=== PATIENT | female | born 1965 | race African-American/Black ===

== ENCOUNTER 2017-06-25 13:10 | Outpatient (CLI) | payer MEDICARE | END 2017-06-25 13:11 | disposition home or self-care (01) | LOC: BICMAMMO 13:10 | PROVIDERS: ATTEND Internal Medicine | DX: Z12.31 Encounter for screening mammogram for malignant neoplasm of breast (principal) | CPT/HCPCS: 77063; 77067 ==

== ENCOUNTER 2017-10-02 09:28 | Emergency (ER) | payer MEDICARE ==
[2017-10-02] MEDS ORDERED: Morphine 10 MG/ML VIAL ONE (10:04)
--- NOTE | 2017-10-02 10:32 | RAD ---
2 VIEWS RIGHT HUMERUS: Date: 10/02/17 PROVIDED CLINICAL HISTORY: Pain status post injury. FINDINGS: There is a comminuted, displaced fracture of the right proximal humerus, primarily involving the maksim ral neck. No additional fracture is evident. IMPRESSION: Comminuted, displaced right proximal humeral fracture. POS: [facility]
== END 2017-10-02 10:41 | disposition home or self-care (01) ==
LOC: ERS 09:28
DX: S42.214A Unspecified nondisplaced fracture of surgical neck of right humerus, initial encounter for closed fracture (principal); E11.9 Type 2 diabetes mellitus without complications; I10 Essential (primary) hypertension; F41.9 Anxiety disorder, unspecified; F32.9 Major depressive disorder, single episode, unspecified; Z87.891 Personal history of nicotine dependence; Z79.4 Long term (current) use of insulin; Z79.899 Other long term (current) drug therapy; W18.09XA Striking against other object with subsequent fall, initial encounter; Y93.02 Activity, running
CPT/HCPCS: 96372; J2270

== ENCOUNTER 2017-10-23 13:46 | Outpatient (CLI) | payer MEDICARE | END 2017-10-23 13:47 | disposition home or self-care (01) | LOC: BICMAMMO 13:46 | PROVIDERS: ATTEND Internal Medicine Rheumatology | DX: M80.00XS Age-related osteoporosis with current pathological fracture, unspecified site, sequela (principal); M85.88 Other specified disorders of bone density and structure, other site | CPT/HCPCS: 77080 ==

== ENCOUNTER 2017-12-03 12:07 | Emergency (ER) | payer MEDICARE ==
--- NOTE | 2017-12-03 13:23 | RAD ---
RIGHT ANKLE THREE VIEWS: HISTORY: Right ankle pain after fall. COMPARISON: None. FINDINGS: Three views of the right ankle show a fracture of the distal fibula. Diffuse surrounding soft tissue swelling is seen. No other fractures are seen. No dislocation is present. IMPRESSION: Distal fibula fracture. POS: [facility]
--- NOTE | 2017-12-03 13:24 | RAD ---
RIGHT KNEE FOUR VIEWS: HISTORY: Fall with right knee pain. COMPARISON: None. FINDINGS: Four views of the right knee show no evidence of acute fracture or dislocation. Moderate diffuse sof t tissue swelling is seen. No knee effusion is present. IMPRESSION: No evidence of acute osseous abnormality. POS: [facility]
== END 2017-12-03 15:05 | disposition home or self-care (01) ==
LOC: ERS 12:07
DX: S82.831A Other fracture of upper and lower end of right fibula, initial encounter for closed fracture (principal); I10 Essential (primary) hypertension; F41.9 Anxiety disorder, unspecified; F32.9 Major depressive disorder, single episode, unspecified; Z79.899 Other long term (current) drug therapy; Z79.4 Long term (current) use of insulin; W17.89XA Other fall from one level to another, initial encounter
CPT/HCPCS: 29515

== ENCOUNTER 2018-02-17 10:24 | Outpatient (CLI) | payer MEDICARE ==
[2018-02-17] MEDS ORDERED: ISOVUE-370 76%-LOCM 1 ML ONE (11:00)
--- NOTE | 2018-02-17 13:58 | CT ---
CT ABDOMEN WITH AND WITHOUT IV CONTRAST: HISTORY: Liver mass. CORRELATION: MRI from 12/31/2016. FINDINGS: There is a 7 mm nodule at the right lung base. An 18 mm hyperenhancing lesion is seen at the anterio r aspect of the lateral segment of the left lobe of the liver, best seen on the arterial phase images , similar to that seen on 12/31/2016. The spleen, pancreas, adrenal glands, and right kidney are nor mal. There is a 6 mm nonobstructing left renal calculus. No hydroureteronephrosis is seen on either side. A subcentimeter low density lesion in the left renal cortex likely represents a cyst. Postop changes in the stomach and of a cholecystectomy are again seen. No free air, free fluid, or l ymphadenopathy is identified. The aorta is of normal caliber. There are mild degenerative changes i n the spine. IMPRESSION: 1. Stable hyperenhancing liver lesion for the past two years, indicating a benign process. 2. Nonobstructing, 6 mm left renal calculus. 3. A 7 mm right basilar lung nodule. A dedicated CT scan of the chest is recommended. POS: [facility]
== END 2018-02-17 10:25 | disposition home or self-care (01) ==
LOC: BICCT 10:24
PROVIDERS: ATTEND Internal Medicine Gastroenterology
DX: K76.9 Liver disease, unspecified (principal); N20.0 Calculus of kidney; R91.1 Solitary pulmonary nodule
CPT/HCPCS: 74170

== ENCOUNTER 2018-04-25 10:10 | Outpatient (CLI) | payer MEDICARE ==
[~2018-04-25 10:10] MED LIST: ISOVUE-370 76%-LOCM 1 ML ONE
--- NOTE | 2018-04-25 11:33 | CT ---
CT OF CHEST PERFORMED WITH INTRAVENOUS CONTRAST ENHANCEMENT: History: Pulmonary nodule noted on recent CT examination of 02-17-18. CT of chest was recommended for assessment for evaluation for additional nodules. Comparison: 02-17-18 CT abdomen/pelvis. FINDINGS: The lungs are clear of any infiltrative process. There is an approximately 7 mm nodule seen in the ri ght lower lobe on the prior examination is now only a very vague parenchymal density. The more soft t issue component is absent on this examination and probably represents some minimal atelectatic change . There are no additional pulmonary nodules seen. No pleural effusions. No significant mediastinal, hilar, or axillary adenopathy. The enhancing focus in the left lobe of the liver is again noted as described on recent CT study> The gallbladder has been removed. IMPRESSION: The small 7 mm nodular density seen in the right lower lobe on the CT study of 02-17-18 is now only a very vague ground glass parenchymal density without any definite solid nodular component. It probabl y represented a small focus of atelectasis that has resolved. POS: [facility]
--- NOTE | 2018-04-25 13:24 | MRI ---
MRI OF LUMBAR SPINE: DATE: 04/25/2018. COMPARISON: None. HISTORY: Chronic lumbar radiculopathy. TECHNIQUE: Multiplanar, multisequence MR imaging of the lumbar spine is obtained without contrast. FINDINGS: The sagittal STIR imaging demonstrates no focal area of osseous marrow edema. Metallic artifact noted anterior to L5 and S1 vertebral bodies. There is no anterolisthesis or retrolisthesis seen within the lumbar spine. On the basis of 5 lumbar-type vertebral bodies, conus medullaris terminates at T12-L1. T12-L1: Intervertebral disk height and signal intensity is within normal limits. There is no signif icant central canal or neural foraminal stenosis. There is mild bilateral facet hypertrophy. L1-2: Mild bilateral facet hypertrophy. Disk space narrowing and mild disk desiccation with no sign ificant central canal or neural foraminal stenosis. L2-3: Mild bilateral facet hypertrophy. Mild disk bulge and small left foraminal disk protrusion. No significant central canal or neural foraminal stenosis. L3-4: Mild bilateral facet hypertrophy. Mild disk bulge. No significant central canal or neural fo raminal stenosis. L4-5: There is mild bilateral facet hypertrophy. Intervertebral disk height and signal intensity ap pears grossly unremarkable. No significant central canal or neural foraminal stenosis. L5-S1: Mild bilateral facet hypertrophy with no significant central canal or neural foraminal stenos is. The imaged retroperitoneal structures appear grossly unremarkable. IMPRESSION: Multilevel facet hypertrophy noted. No significant central canal or neural foraminal stenosis. POS: [facility]
== END 2018-04-25 10:11 | disposition home or self-care (01) ==
LOC: BICCT 10:10
PROVIDERS: ATTEND Internal Medicine
DX: M54.16 Radiculopathy, lumbar region (principal); R91.1 Solitary pulmonary nodule; M48.8X7 Other specified spondylopathies, lumbosacral region
CPT/HCPCS: 71260; 72148

== ENCOUNTER 2018-06-03 14:17 | Outpatient (CLI) | payer MEDICARE ==
--- NOTE | 2018-06-03 15:16 | RAD ---
PA AND LATERAL CHEST: History: Cough. FINDINGS: The heart size is borderline. The lungs are expanded without focal areas of consolidation, pneumothor aces or pleural effusions. There is an old fracture of the right humeral neck. IMPRESSION: No radiographic evidence of acute cardiopulmonary process. POS: [facility]
== END 2018-06-03 14:18 | disposition home or self-care (01) ==
LOC: BICRAD 14:17
PROVIDERS: ATTEND Internal Medicine
DX: R05 Cough (principal)
CPT/HCPCS: 71046

== ENCOUNTER 2018-11-05 15:04 | Outpatient (CLI) | payer MEDICARE ==
--- NOTE | 2018-11-05 16:05 | MMO ---
Bilateral MAMMO Bilat Screen [facility]. CLINICAL HISTORY: Patient is 53 years old and is seen for screening. The patient has no family history of breast cancer. The patient has no personal history of cancer. The patient has a history of bilateral Breast reduction in - benign. VIEWS: The views performed were: bilateral craniocaudal with tomosynthesis and bilateral mediolateral oblique with tomosynthesis. FILMS COMPARED: The present examination has been compared to prior imaging studies performed at [facility] on 07/13/2011, 08/13/2012, 11/11/2015 and 06/25/2017. MAMMOGRAM FINDINGS: There are scattered fibroglandular densities. There are no suspicious masses, suspicious calcifications, or new areas of architectural distortion. IMPRESSION: THERE IS NO MAMMOGRAPHIC EVIDENCE OF MALIGNANCY. A ROUTINE FOLLOW-UP MAMMOGRAM IN 1 YEAR IS RECOMMENDED. THE RESULTS OF THIS EXAM WERE SENT TO THE PATIENT. ACR BI-RADS Category 1 - Negative MAMMOGRAPHY NOTE: 1. A negative mammogram report should not delay a biopsy if a dominant of clinically suspicious mass is present. 2. Approximately 10% to 15% of breast cancers are not detected by mammography. 3. Adenosis and dense breasts may obscure an underlying neoplasm. Reported by: Noel MARRUFO Electonically Signed: [id number]
== END 2018-11-05 15:05 | disposition home or self-care (01) ==
LOC: BICMAMMO 15:04
PROVIDERS: ATTEND Internal Medicine
DX: Z12.31 Encounter for screening mammogram for malignant neoplasm of breast (principal)
CPT/HCPCS: 77063; 77067

== ENCOUNTER 2018-12-30 20:57 | Observation (INO) | payer MEDICARE ==
[2018-12-30 21:55] LABS: Bilirubin Negative (Negative); Blood, Urine Negative (Negative); Clarity Clear (Clear); Glucose, Urine (Dipstick) Greater than 1000 mg/dL (Negative); Leukocyte 25 Leu/uL (Negative); Nitrite Negative (Negative); Protein, Urine (Dipstick) 70 mg/dL (Neg-Trace); WBC/HPF 0-3 HPF (0-3)
[2018-12-30 22:03] LABS: Bacteria/HPF 1+ HPF (None Seen)
[2018-12-30] MEDS ORDERED: Ondansetron PF 4 MG/2 ML Vial ONE (22:14)
[2018-12-30 22:24] LABS: #Basophils 0.1 thou/uL (0.0-0.2); #Neutrophils 10.3 thou/uL (1.40-6.50); %Basophils 0.6 % (0.0-1.0); %Eosinophils 0.1 % (0.0-10.0); %Monocytes 7.2 % (0.0-10.0); %Neutrophils 77.1 % (42.0-75.0); Mean Corpuscular HGB CONC 32.1 g/dL (32.0-36.0); Mean Corpuscular Volume 90.2 fL (78.0-98.0); Mean Platelet Volume 7.3 fL (7.4-10.4); Platelet Count 275 thou/uL (130-400); RBC Distribution Width 13.2 % (11.5-14.5); White Blood Cell (WBC) Count 13.3 thou/uL (4.8-10.8)
--- NOTE | 2018-12-30 22:37 | CT ---
CT BRAIN NONCONTRAST: DATE: 12/30/2018 HISTORY: 53-year-old female with altered mental status: Disorientation, anorexia, generalized weakness, confus ion, and somnolence. FINDINGS: There is no evidence of acute intra-axial or extra-axial hemorrhage. There is no midline shift or any other mass effect. There is no extra-axial fluid collection. There is no evidence of obstructive hydrocephalus. Calvarium is intact. IMPRESSION: No acute intracranial findings.
[2018-12-30 22:43] LABS: ALT (SGPT) 17 U/L (8-55); AST (SGOT) 20 U/L (5-34); Albumin 3.2 g/dL (3.5-5.0); Alkaline Phosphatase 134 U/L (40-110); Anion Gap 13 mmol/L (10-20); BUN (Urea Nitrogen) 19 mg/dL (9.8-20.1); Bilirubin, Total 0.5 mg/dL (0.2-1.2); Calc. Creatinine Clearance 0 mL/min (70-130); Calcium 8.9 mg/dL (7.8-10.44); Carbon Dioxide 24 mmol/L (22-29); Chloride 102 mmol/L (98-107); Estimated GFR-MDRD 60; Globulin 3.6 g/dL (2.4-3.5); Glucose 116 mg/dL (70-105); Potassium 3.8 mmol/L (3.5-5.1); Protein, Total 6.8 g/dL (6.0-8.3); Sodium 135 mmol/L (136-145)
[2018-12-30 23:06] LABS: CKMB 2.4 ng/mL (0-6.6)
[2018-12-30] MEDS ORDERED: Aspirin 325 MG TAB ONE (23:46)
[2018-12-31 01:49] LABS: Troponin I 0.039 ng/mL (< 0.028)
[2018-12-31 01:51] VITALS: BMI 37.0
[2018-12-31 07:24] LABS: Troponin I 0.067 ng/mL (< 0.028)
[2018-12-31] MEDS ORDERED: Dextrose 50% Abboject 50 ML SYRINGE SLOW IVP PRN (09:34)
[2018-12-31] MEDS ORDERED: Ondansetron PF 4 MG/2 ML Vial IVP PRN (09:34)
[2018-12-31] MEDS ORDERED: Acetaminophen 325 MG TAB PO PRN (09:34)
[2018-12-31] MEDS ORDERED: HumaLOG 300 UNITS/3 ML VIAL SC PRN ×2 (09:34)
[2018-12-31] MEDS ORDERED: Dextrose 5% in Water 1,000 ML IV PRN (09:34)
[2018-12-31] MEDS ORDERED: Ondansetron ODT 4 MG TAB PO PRN (09:34)
[2018-12-31] MEDS ORDERED: Dicyclomine 20 MG TAB PO PRN (09:36)
[2018-12-31] MEDS ORDERED: HYDROcodone/Acetaminophen 10/325 mg Tablet PO PRN ×2 (09:36→09:48)
[2018-12-31 10:19] LABS: #Basophils 0.1 thou/uL (0.0-0.2); #Lymphocytes 2.3 thou/uL (1.20-3.40); #Neutrophils 6.6 thou/uL (1.40-6.50); %Basophils 0.7 % (0.0-1.0); %Eosinophils 0.1 % (0.0-10.0); %Lymphocytes 23.3 % (21.0-51.0); %Monocytes 9.9 % (0.0-10.0); %Neutrophils 65.9 % (42.0-75.0); Hemoglobin 12.2 g/dL (12.0-16.0); Mean Corpuscular HGB CONC 32.3 g/dL (32.0-36.0); Mean Corpuscular Hemoglobin 29.1 pg (27.0-31.0); Mean Corpuscular Volume 90.1 fL (78.0-98.0); Mean Platelet Volume 7.3 fL (7.4-10.4); Platelet Count 238 thou/uL (130-400); RBC Distribution Width 13.1 % (11.5-14.5); Red Blood Cell (RBC) Count 4.19 mill/uL (4.20-5.40)
[2018-12-31 10:33] LABS: Anion Gap 12 mmol/L (10-20); BUN (Urea Nitrogen) 17 mg/dL (9.8-20.1); Calc. Creatinine Clearance 110 mL/min (70-130); Calcium 8.3 mg/dL (7.8-10.44); Carbon Dioxide 23 mmol/L (22-29); Chloride 108 mmol/L (98-107); Estimated GFR-MDRD 79; Glucose 79 mg/dL (70-105); Magnesium 1.7 mg/dL (1.6-2.6); Potassium 3.7 mmol/L (3.5-5.1); Sodium 139 mmol/L (136-145)
[2018-12-31 10:34] LABS: CRP (Inflammatory) 4.48 mg/dL (= or < 0.5); Complement-C4 27.7 mg/dL (15-57)
--- NOTE | 2018-12-31 12:24 | MRI ---
MRI BRAIN WITHOUT CONTRAST: Date: 12/31/18 INDICATION: Altered mental status. Weakness and confusion. FINDINGS: Ventricles have normal size and position. No evidence of restricted diffusion. No mass or edema. No s ignificant white matter abnormality. No evidence of hemorrhage. Intracranial internal carotid arterie s and cerebral arteries show expected flow-voids. Dural venous sinuses are patent. Paranasal sinuses and mastoids appear clear. IMPRESSION: Unremarkable MRI brain. POS: [facility]
[2018-12-31 12:34] LABS: Free T4 (Free Thyroxine) 0.89 ng/dL (0.70-1.48); Thyroid Stimulating Hormone 0.5156 uIU/mL (0.35-4.94)
[2018-12-31 13:11] LABS: Amphetamine Not Detected (NotDetected); Barbiturates Screen Not Detected (NotDetected); Benzodiazepine Screen Not Detected (NotDetected); Cocaine Metabolite Screen Not Detected (NotDetected); Medtox Control Line Valid? VALID (VALID); Medtox Reader # READER 4; Methadone Not Detected (NotDetected); Methamphetamine Not Detected (NotDetected); Opiate Screen Detected (NotDetected); Oxycodone Screen Not Detected (NotDetected); Phencyclidine (PCP) Not Detected (NotDetected); THC/Cannabinoid Screen Not Detected (NotDetected); Tricyclic Screen Detected (NotDetected)
[2018-12-31 13:13] LABS: ANA Symphony (Qualitative) Negative (Negative); ANA Symphony (Quantitative) 0.2 Ratio (< 0.7 Negative); EliA Thy New Method **** NEW METHOD ****; EliA Vaculitis New Method **** NEW METHOD ****; Mitochondrial Ab 0.7 U/mL (<4 Negative); dsDNA IgG Antibody 1.2 IU/mL (<10 Negative)
[2018-12-31] MEDS ORDERED: Gabapentin 300 MG CAP PO SCH ×2 (15:00→21:00)
--- NOTE | 2018-12-31 16:49 | HP ---
PRIMARY CARE PHYSICIAN: Dr. Jackie Hidalgo. CHIEF COMPLAINT: Amnesia and general malaise. HISTORY OF PRESENT ILLNESS: Ms. Duenas is a 53-year-old female with past medical history of hypertension, diabetes mellitus type 2, adrenal insufficiency, fibromyalgia, lupus, rheumatoid arthritis, who had presented to the ED late last night after she had experienced acute amnesia over the last 2 days. She states that she has had a brain fog and acute loss of memory over the last 2 days along with some general malaise and not feeling well. She also reported headache, started on Saturday, she states that she has a history of migraines. She had denied any fever, chills, any chest pain, palpitations, shortness of breath, abdominal pain, nausea, or vomiting. She states that she had felt slightly nauseous last night, which has soon resolved. During her workup in the ED, it showed an acute kidney injury with a creatinine slightly elevated at 1.14 with an estimated GFR of 60, glucose 116, and troponin indeterminate at 0.061 with a BNP of 116.5. However, she had no symptoms of chest pain or other cardiac symptoms at that time. Her CT of the head was unremarkable. Her blood pressure and other vital signs remained stable and she had no changes on her EKG. REVIEW OF SYSTEMS: All other systems reviewed and found to be negative unless mentioned in the HPI. PAST MEDICAL HISTORY: Hypertension, diabetes mellitus, fibromyalgia, adrenal insufficiency, lupus, rheumatoid arthritis. PAST SURGICAL HISTORY: Hysterectomy, bilateral breast reduction, ulnar nerve surgery on the left, cholecystectomy. PSYCHIATRIC HISTORY: Anxiety. SOCIAL HISTORY: The patient is a former smoker and quit in 2010. She had denied any alcohol or illicit drug use. KNOWN ALLERGIES: Lactose, latex, meperidine, penicillins, and sulfa. CURRENT HOME MEDICATIONS: 1. Levothyroxine 200 mcg p.o. daily. 2. Amitriptyline 50 mg p.o. b.i.d. 3. Bupropion 100 mg p.o. daily. 4. Clopidogrel 75 mg oral daily. 5. p.o. b.i.d. 6. Duloxetine 120 mg p.o. daily. 7. Gabapentin 600 mg in the morning and 300 mg at 3 p.m. and at bedtime. 8. Hydrochlorothiazide 25 mg p.o. daily. 9. Hydrocodone/acetaminophen 10/325 mg oral q.i.d. p.r.n. pain. 10. Leflunomide 20 mg p.o. daily. 11. Prednisone 5 mg p.o. daily. 12. Simvastatin 20 mg p.o. q.p.m. 13. Telmisartan 80 mg p.o. daily. 14. Folic acid 1 mg p.o. daily. 15. Colestipol 1 g p.o. b.i.d. 16. Novolin 70/30, 25 units subcu once daily. PHYSICAL EXAMINATION: VITAL SIGNS: Blood pressure 138/82, pulse 83, respirations 20, temperature 98.4, O2 saturation 93% on room air. GENERAL: The patient is awake, alert, and oriented x3. She is currently lying comfortably in bed and in no acute distress. HEENT: Atraumatic, normocephalic. Pupils are round and reactive to light. Extraocular muscles are intact. Moist mucous membranes noted. NECK: Soft and supple. Trachea midline. CARDIOVASCULAR: Positive S1 and S2, regular rate and rhythm. No murmur auscultated. RESPIRATORY: Clear to auscultation bilaterally. No wheezes, rales, or rhonchi. ABDOMEN: Soft, nontender, bowel sounds present. EXTREMITIES: Moves all extremities equal. Pedal and radial pulses 2+ bilaterally. No edema noted. NEUROLOGIC: Cranial nerves 2 through 12 are grossly intact. No focal deficits noted. Speech intact and normal. Gait not assessed. SKIN: Warm, dry, and intact. No rashes. No ulceration noted. PSYCHIATRIC: Good mood and affect. LABORATORY DATA: WBC 13.3, RBC 4.50, hemoglobin 13.0, hematocrit 40.5, platelets 275. Sodium 135, potassium 3.8, anion gap 13, BUN 19, creatinine 1.14, estimated GFR 60, glucose 116. CK-MB 2.4. Troponin 0.061, 0.039, 0.067. BNP 116.5. DIAGNOSTIC IMAGING: CT of brain without contrast showed no acute intracranial findings. ASSESSMENT AND PLAN: 1. Acute amnesia. We will obtain an MRI, urine drug screen, and consult Neurology Services at this time for further evaluation. 2. History of migraine. We will await her MRI results along with further recommendations from Neurology Services. This may also be causing above. 3. History of hypertension. Continue home regimen. 4. Diabetes mellitus, type 2. Continue home regimen and add insulin sliding scale with frequent Accu-Cheks. 5. History of lupus and rheumatoid arthritis. We will check to see if she is in acute lupus flare and restart her home regimen including oral prednisone daily. She states that she saw Dr. Hernandez as outpatient. 6. History of fibromyalgia. 7. Deep venous thrombosis and gastrointestinal prophylaxis. 8. Code status, full code. DISPOSITION: Pending further workup and clinical findings. Job ID: [id number]
[2018-12-31] MEDS: Amitriptyline HCl 25 MG TAB PO SCH (20:50)
[2018-12-31] MEDS ORDERED: Non-Formulary Item 1 EACH (Simvastatin [Simvastatin] 20 MG) PO SCH (21:00)
[2018-12-31] MEDS ORDERED: Non-Formulary Item 1 EACH (Amitriptyline Hcl [Amitriptyline Hcl] 50 MG) PO SCH (21:00)
[2018-12-31] MEDS ORDERED: Atorvastatin Calcium 10 MG TAB PO SCH (21:00)
[2019-01-01] MEDS ORDERED: Levothyroxine Sodium 100 MCG TAB PO SCH (06:00)
[2019-01-01 06:50] LABS: #Basophils 0.1 thou/uL (0.0-0.2); #Monocytes 0.9 thou/uL (0.11-0.59); #Neutrophils 5.4 thou/uL (1.40-6.50); %Basophils 0.8 % (0.0-1.0); %Eosinophils 0.3 % (0.0-10.0); %Lymphocytes 31.8 % (21.0-51.0); %Monocytes 9.9 % (0.0-10.0); %Neutrophils 57.1 % (42.0-75.0); Hemoglobin 12.3 g/dL (12.0-16.0); Mean Corpuscular HGB CONC 32.3 g/dL (32.0-36.0); Mean Corpuscular Hemoglobin 29.9 pg (27.0-31.0); Mean Corpuscular Volume 92.7 fL (78.0-98.0); Mean Platelet Volume 7.1 fL (7.4-10.4); Platelet Count 245 thou/uL (130-400); RBC Distribution Width 13.1 % (11.5-14.5); Red Blood Cell (RBC) Count 4.11 mill/uL (4.20-5.40); White Blood Cell (WBC) Count 9.5 thou/uL (4.8-10.8)
[2019-01-01] MEDS ORDERED: Clopidogrel Bisulfate 75 MG TAB PO SCH (09:00)
[2019-01-01] MEDS ORDERED: Enoxaparin Sodium 40 MG/0.4 ML SYRINGE SC SCH (09:00)
[2019-01-01] MEDS ORDERED: Hydrochlorothiazide 25 MG TAB PO SCH (09:00)
[2019-01-01] MEDS ORDERED: DULoxetine 60 MG CAP PO SCH (09:00)
[2019-01-01] MEDS ORDERED: predniSONE 5 MG TAB PO SCH (09:00)
[2019-01-01] MEDS ORDERED: Gabapentin 300 MG CAP PO SCH ×2 (09:00)
[2019-01-01] MEDS ORDERED: TELMISARTAN 80 MG PO SCH (09:00)
[2019-01-01] MEDS ORDERED: Leflunomide 10 mg Tablet PO SCH (09:00)
[2019-01-01] MEDS ORDERED: Losartan 25 MG TAB PO SCH (09:00)
[2019-01-01] MEDS ORDERED: Bupropion 100 MG SR TAB PO SCH (09:00)
[2019-01-01] MEDS: Amitriptyline HCl 25 MG TAB PO SCH (09:18)
[2019-01-01 09:48] LABS: Chloride 109 mmol/L (98-107); Potassium 3.9 mmol/L (3.5-5.1); Sodium 140 mmol/L (136-145)
[2019-01-01 09:49] LABS: Calcium 8.4 mg/dL (7.8-10.44); Glucose 89 mg/dL (70-105)
[2019-01-01 09:51] LABS: Anion Gap 11 mmol/L (10-20); Carbon Dioxide 24 mmol/L (22-29)
[2019-01-01 09:53] LABS: Calc. Creatinine Clearance 107 mL/min (70-130); Estimated GFR-MDRD 77
[2019-01-01 09:54] LABS: BUN (Urea Nitrogen) 18 mg/dL (9.8-20.1)
[2019-01-01 11:58] VITALS: BP 146/67; TEMP 98.2
--- NOTE | 2019-01-01 19:12 | DIS ---
DATE OF ADMISSION: 12/30/2018 DATE OF DISCHARGE: 01/01/2019 DISCHARGE DISPOSITION: Home. FOLLOWUP: 1. Follow up with primary care physician, Dr. Jackie Hidalgo, in 1 week. 2. Follow up with Neurology, Dr. Chicas, in 2 weeks. DISCHARGE MEDICATIONS: Imitrex as needed. All other home medications were left unchanged. The patient was seen and examined on the day of discharge. Denies any new complaints. No chest pain, shortness of breath, or palpitations. DIAGNOSTIC TESTS: 1. RAEGAN panel was negative. 2. Thyroid peroxidase IgG was 136 (normal is less than 25). 3. C3 and C4 were normal. 4. Troponin maximum was 0.067. 5. CRP was 4.48. 6. Creatinine 0.9. 7. WBC on admission 13.3, at discharge is 9.5. 8. CT scan of the brain on admission was negative for acute findings. 9. MRI of the brain was unremarkable. BRIEF HOSPITAL COURSE: The patient is a 53-year-old female with past history of hypertension, diabetes mellitus type 2, migraines, and systemic lupus erythematosus, presented to the hospital with generalized malaise along with transient amnesia. Please refer to the history and physical for further details. The patient was admitted to the hospital with a diagnosis of transient amnesia with altered mentation. She was monitored on the telemetry unit. Her electrolytes were essentially normal except for mild hyponatremia. The patient was evaluated by Neurology. According to Neurology, the patient probably had complex migraine. She was advised to restart Imitrex on an as-needed basis. She has been cleared by Neurology for discharge. The patient was also found to have elevated thyroid peroxidase IgG at 136. Her TSH was 0.51 with a free T4 of 0.89. She was advised to follow up on the above labs. FINAL DIAGNOSES: 1. Transient amnesia, suspected to be secondary to migraine. 2. Hypertension. 3. Diabetes mellitus, type 2. 4. Systemic lupus erythematosus. 5. Rheumatoid arthritis, on chronic steroids. 6. Fibromyalgia. 7. Adrenal insufficiency. 8. Hyponatremia. 9. Elevated troponin secondary to demand ischemia/type 2 myocardial infarction. 10. Leukocytosis, unlikely to be infectious. 11. Penicillin allergy. 12. Obesity with a body mass index of 36.8. Plan was discussed with the patient in detail. She stated understanding. Job ID: [id number]
--- NOTE | 2019-01-03 13:42 | EKG ---
Test Reason : ER Blood Pressure : / mmHG Vent. Rate : 083 BPM Atrial Rate : 083 BPM P-R Int : 180 ms QRS Dur : 094 ms QT Int : 418 ms P-R-T Axes : 011 -31 036 degrees QTc Int : 491 ms Normal sinus rhythm Left axis deviation Incomplete right bundle branch block Cannot rule out Anterior infarct , age undetermined Abnormal ECG Confirmed by STEVEN PARKER ([id number]), state editor LUZMARIA BUSTAMANTE ([id number]) on 01/03/2019 1:41:25 PM Referred By: Confirmed By:STEVEN PARKER
== END 2019-01-01 14:36 | disposition home or self-care (01) ==
LOC: ERS 20:57 → 2SW 23:16
PROVIDERS: ADMIT Internal Medicine; ATTEND Internal Medicine
DX: R41.3 Other amnesia (principal); R53.81 Other malaise; I10 Essential (primary) hypertension; E11.9 Type 2 diabetes mellitus without complications; M32.9 Systemic lupus erythematosus, unspecified; M06.9 Rheumatoid arthritis, unspecified; M79.7 Fibromyalgia; E27.40 Unspecified adrenocortical insufficiency; G43.909 Migraine, unspecified, not intractable, without status migrainosus; F41.9 Anxiety disorder, unspecified; E87.1 Hypo-osmolality and hyponatremia; E66.9 Obesity, unspecified; Z68.36 Body mass index [BMI] 36.0-36.9, adult; Z87.891 Personal history of nicotine dependence; Z88.0 Allergy status to penicillin; Z88.2 Allergy status to sulfonamides; Z88.5 Allergy status to narcotic agent; Z91.011 Allergy to milk products; Z91.040 Latex allergy status; Z79.02 Long term (current) use of antithrombotics/antiplatelets; Z79.4 Long term (current) use of insulin; Z79.52 Long term (current) use of systemic steroids; Z79.899 Other long term (current) drug therapy
CPT/HCPCS: 36415; 36416; 70450; 70551; 80048; 80053; 80306; 81003; 81015; 82553; 83516; 83735; 83880; 84439; 84443; 84484; 85025; 85652; 86038; 86140; 86160; 86225; 86376; 93005; 96361; 96374; G0378; J2405; J7512

== ENCOUNTER 2019-12-23 11:18 | Outpatient (CLI) | payer MEDICARE ==
--- NOTE | 2019-12-23 11:45 | RAD ---
EXAM: 4 views of the right knee HISTORY: Knee pain COMPARISON: None FINDINGS: No knee effusion is seen. There is no evidence of acute fracture or dislocation. No signifi cant degenerative changes are seen. Moderate diffuse soft tissue swelling is present. IMPRESSION: No evidence of acute osseous abnormality.
--- NOTE | 2019-12-23 11:45 | RAD ---
EXAM: 3 views of the right wrist HISTORY: Wrist pain after falling one week ago COMPARISON: None FINDINGS: 3 views of the right wrist shows no evidence of acute fracture or dislocation. No soft tiss ue swelling is seen. No degenerative changes are present. IMPRESSION: No evidence of acute osseous abnormality.
== END 2019-12-23 11:19 | disposition home or self-care (01) ==
LOC: BICRAD 11:18
PROVIDERS: ATTEND Internal Medicine
DX: M25.531 Pain in right wrist (principal); M25.561 Pain in right knee

== ENCOUNTER 2021-01-04 10:32 | Inpatient (IN) | payer MEDICARE ==
[2021-01-04] MEDS ORDERED: Azithromycin 500 MG VIAL ONE (11:42)
[2021-01-04 12:12] LABS: Hemoglobin 12.9 g/dL (12.0-16.0); Mean Corpuscular HGB CONC 30.8 g/dL (32.0-36.0); Mean Corpuscular Hemoglobin 28.6 pg (27.0-31.0); Mean Corpuscular Volume 92.9 fL (78.0-98.0); Mean Platelet Volume 7.1 fL (7.4-10.4); Platelet Count 401 thou/uL (130-400); RBC Distribution Width 14.9 % (11.5-14.5)
[2021-01-04 12:17] LABS: ALT (SGPT) 18 U/L (8-55); AST (SGOT) 18 U/L (5-34); Albumin 3.5 g/dL (3.5-5.0); Alkaline Phosphatase 151 U/L (40-110); Anion Gap 14 mmol/L (10-20); BUN (Urea Nitrogen) 14 mg/dL (9.8-20.1); Bilirubin, Total 0.6 mg/dL (0.2-1.2); Calc. Creatinine Clearance 0 mL/min (70-130); Carbon Dioxide 26 mmol/L (22-29); Chloride 105 mmol/L (98-107); Glucose 282 mg/dL (70-105); Potassium 3.6 mmol/L (3.5-5.1); Protein, Total 6.5 g/dL (6.0-8.3); Sodium 141 mmol/L (136-145)
[2021-01-04 12:41] LABS: Band 35 % (5-11); Lymphocytes 5 % (21-51); MDiff Complete? YES; Metamyelocyte 2 % (0-0); Monocytes 2 % (0-10); Neutrophil 56 % (42-75); RBC Morphology Normal
[2021-01-04] MEDS ORDERED: cefTRIAXone\\ROCEPHIN 2 GM VIAL ONE (13:03)
[2021-01-04] MEDS ORDERED: Dextrose 50% Abboject 50 ML SYRINGE SLOW IVP PRN (14:28)
[2021-01-04] MEDS ORDERED: HumaLOG 300 UNITS/3 ML VIAL SC PRN (14:28)
[2021-01-04] MEDS ORDERED: Dextrose 5% in Water 1,000 ML IV PRN (14:28)
[2021-01-04 16:04] LABS: Lactic Acid 7.4 mmol/L (0.5-2.2)
[2021-01-04] MEDS ORDERED: Sodium Chloride 0.9% 1,000 ML IV SCH ×2 (17:15→20:00)
[2021-01-04] MEDS ORDERED: Sodium Chloride 0.9% 500 ML IV SCH (17:15)
[2021-01-04 18:52] LABS: Lactic Acid 5.5 mmol/L (0.5-2.2)
[2021-01-04] MEDS: Vancomycin HCl 1.75 GM in Sodium Chloride 0.9% 500 ML IVPB SCH (18:53)
[2021-01-04 19:08] LABS: SARS-CoV-2 NAA Rapid Test Not Detected (NotDetected)
[2021-01-04] MEDS ORDERED: Benzonatate 100 MG CAP PO PRN (19:09)
[2021-01-04] MEDS: guaiFENesin ER 600 MG TAB PO SCH (20:49)
[2021-01-04] MEDS: hydrOXYzine 10 MG TAB PO PRN (20:49)
[2021-01-04] MEDS: Cefepime 2 GM in Sodium Chloride 0.9% 100 ML IVPB SCH (20:50)
[2021-01-04] MEDS: NPH, Human Insulin Isophane 300 UNIT/3 ML VIAL SC SCH (20:50)
[2021-01-04] MEDS ORDERED: Cefepime 2 GM in Sodium Chloride 0.9% 100 ML IVPB SCH (21:00)
[2021-01-04 23:56] LABS: Legionella Urinary Ag Negative (Negative); Strep pneumo Urine Ag NEGATIVE (NEGATIVE)
[2021-01-05 05:11] LABS: Band 3 % (5-11); Hemoglobin 11.6 g/dL (12.0-16.0); Lymphocytes 8 % (21-51); MDiff Complete? YES; Mean Corpuscular HGB CONC 31.4 g/dL (32.0-36.0); Mean Corpuscular Hemoglobin 29.1 pg (27.0-31.0); Mean Corpuscular Volume 92.7 fL (78.0-98.0); Mean Platelet Volume 7.1 fL (7.4-10.4); Monocytes 20 % (0-10); Neutrophil 69 % (42-75); Platelet Count 336 thou/uL (130-400); Platelet Morphology Comment Appears Adequate; RBC Morphology Normal; Red Blood Cell (RBC) Count 3.97 mill/uL (4.20-5.40); White Blood Cell (WBC) Count 28.5 thou/uL (4.8-10.8)
[2021-01-05 05:13] LABS: Lactic Acid 1.5 mmol/L (0.5-2.2)
[2021-01-05 05:18] LABS: Anion Gap 13 mmol/L (10-20); BUN (Urea Nitrogen) 19 mg/dL (9.8-20.1); Calc. Creatinine Clearance 120 mL/min (70-130); Calcium 8.4 mg/dL (7.8-10.44); Carbon Dioxide 28 mmol/L (22-29); Chloride 107 mmol/L (98-107); Glucose 229 mg/dL (70-105); Magnesium 2.2 mg/dL (1.6-2.6); Potassium 4.7 mmol/L (3.5-5.1); Sodium 143 mmol/L (136-145)
[2021-01-05] MEDS: Levothyroxine Sodium 100 MCG TAB PO SCH (05:39)
[2021-01-05] MEDS ORDERED: HYDROcodone/Acetaminophen 10/325 mg Tablet PO PRN (07:27)
[2021-01-05] MEDS: NPH, Human Insulin Isophane 300 UNIT/3 ML VIAL SC SCH ×2 (09:37→21:34)
[2021-01-05] MEDS: Cefepime 2 GM in Sodium Chloride 0.9% 100 ML IVPB SCH ×2 (09:39→20:53)
[2021-01-05] MEDS: Enoxaparin Sodium 40 MG/0.4 ML SYRINGE SC SCH (09:40)
[2021-01-05] MEDS: Amitriptyline HCl 25 MG TAB PO SCH ×2 (09:40→22:30)
[2021-01-05] MEDS: DULoxetine 60 MG CAP PO SCH (09:40)
[2021-01-05] MEDS: guaiFENesin ER 600 MG TAB PO SCH ×2 (09:41→22:31)
[2021-01-05] MEDS: Bupropion 100 MG SR TAB PO SCH (09:41)
[2021-01-05] MEDS: predniSONE 1 MG TAB PO SCH (09:45)
[2021-01-05] MEDS: Gabapentin 300 MG CAP PO SCH ×3 (11:22→22:30)
[2021-01-05] MEDS ORDERED: Iopamidol-370 76% 500 ML 1 ML ONE (11:28)
[2021-01-05] MEDS ORDERED: Sodium Chloride 0.9% 1,000 ML IV SCH ×2 (11:30→16:47)
[2021-01-05] MEDS ORDERED: Gabapentin 300 MG CAP PO SCH (12:00)
[2021-01-05] MEDS ORDERED: Azithromycin 500 MG in Sodium Chloride 0.9% 250 ML 250 ML IVPB SCH (13:00)
[2021-01-05] MEDS ORDERED: cefTRIAXone\\ROCEPHIN 1 GM in Sodium Chloride 0.9% 100 ML IVPB SCH (13:00)
[2021-01-05] MEDS: Azithromycin 500 MG in Sodium Chloride 0.9% 250 ML 250 ML IVPB SCH (13:16)
[2021-01-05] MEDS ORDERED: Cefepime 2 GM in Sodium Chloride 0.9% 100 ML IVPB SCH (16:00)
[2021-01-05] MEDS: Mometasone 200 MCG/Formoterol 5 MCG 120 PUFF INHALER INH SCH (18:43)
[2021-01-05] MEDS: Vancomycin HCl 1.75 GM in Sodium Chloride 0.9% 500 ML IVPB SCH (18:46)
[2021-01-05] MEDS ORDERED: Lorazepam 2 MG/ML VIAL SLOW IVP SCH (22:00)
[2021-01-05] MEDS ORDERED: Labetalol HCl 100 MG/20 ML VIAL SLOW IVP PRN (22:22)
[2021-01-06] MEDS ORDERED: Furosemide 40 MG/4 ML VIAL ONE (00:30)
[2021-01-06 00:39] LABS: Actual Bicarbonate (HCO3a) 22.6 mEq/L (22-28); Base Excess (BEa) -0.9 mEq/L (-2.0 to +3.0); CO2 Tension 33.6 mmHg (35.0-45.0); Calcium, Ionized (arterial) 1.15 mmol/L (1.12-1.30); Carboxyhemoglobin (COHb) 0.6 gm% (0.0-3.0); Hemoglobin (Hb) 11.6 g/dL (12.0-16.0); O2 Tension (PaO2), arterial 72.5 mmHg (80.0-100.0); Potassium - ABG Lab 3.63 mmol/L (3.70-5.30); pH, Arterial 7.45 (7.35-7.45)
[2021-01-06 00:45] LABS: Puncture Site RRA
[2021-01-06] MEDS ORDERED: methylPREDNISolone Sod Succ/PF 125 MG/2 ML VIAL IVP SCH (01:15)
[2021-01-06 01:44] LABS: Anion Gap 11 mmol/L (10-20); BUN (Urea Nitrogen) 22 mg/dL (9.8-20.1); Calc. Creatinine Clearance 138 mL/min (70-130); Calcium 8.4 mg/dL (7.8-10.44); Carbon Dioxide 25 mmol/L (22-29); Chloride 109 mmol/L (98-107); Glucose 110 mg/dL (70-105); Potassium 3.6 mmol/L (3.5-5.1); Sodium 141 mmol/L (136-145)
[2021-01-06] MEDS ORDERED: Furosemide 40 MG/4 ML VIAL SLOW IVP SCH (01:45)
[2021-01-06] MEDS: hydrOXYzine 10 MG TAB PO PRN (03:19)
[2021-01-06] MEDS: Cefepime 2 GM in Sodium Chloride 0.9% 100 ML IVPB SCH ×3 (03:19→20:56)
[2021-01-06] MEDS: Levothyroxine Sodium 100 MCG TAB PO SCH (03:58)
[2021-01-06 05:20] LABS: Hemoglobin 11.9 g/dL (12.0-16.0); Mean Corpuscular Hemoglobin 29.8 pg (27.0-31.0); Mean Corpuscular Volume 93.2 fL (78.0-98.0); Mean Platelet Volume 7.2 fL (7.4-10.4); Platelet Count 334 thou/uL (130-400); Red Blood Cell (RBC) Count 3.99 mill/uL (4.20-5.40); White Blood Cell (WBC) Count 26.8 thou/uL (4.8-10.8)
[2021-01-06 05:24] LABS: Anion Gap 15 mmol/L (10-20); BUN (Urea Nitrogen) 21 mg/dL (9.8-20.1); Calc. Creatinine Clearance 125 mL/min (70-130); Calcium 8.6 mg/dL (7.8-10.44); Carbon Dioxide 23 mmol/L (22-29); Chloride 108 mmol/L (98-107); Glucose 159 mg/dL (70-105); Potassium 4.2 mmol/L (3.5-5.1); Sodium 142 mmol/L (136-145)
[2021-01-06 05:45] LABS: Band 2 % (5-11); Lymphocytes 3 % (21-51); MDiff Complete? YES; Neutrophil 95 % (42-75)
[2021-01-06] MEDS: Enoxaparin Sodium 40 MG/0.4 ML SYRINGE SC SCH (09:24)
[2021-01-06] MEDS: Mometasone 200 MCG/Formoterol 5 MCG 120 PUFF INHALER INH SCH (09:24)
[2021-01-06] MEDS: guaiFENesin ER 600 MG TAB PO SCH ×2 (09:30→20:56)
[2021-01-06] MEDS: predniSONE 1 MG TAB PO SCH (09:30)
[2021-01-06] MEDS: NPH, Human Insulin Isophane 300 UNIT/3 ML VIAL SC SCH ×2 (09:30→21:06)
[2021-01-06] MEDS: Bupropion 100 MG SR TAB PO SCH (09:30)
[2021-01-06] MEDS: DULoxetine 60 MG CAP PO SCH (09:30)
[2021-01-06] MEDS: Gabapentin 300 MG CAP PO SCH ×3 (09:30→20:56)
[2021-01-06] MEDS: Amitriptyline HCl 25 MG TAB PO SCH ×2 (09:30→20:57)
[2021-01-06] MEDS: HumaLOG 300 UNITS/3 ML VIAL SC PRN ×2 (11:26→17:15)
[2021-01-06] MEDS: Azithromycin 500 MG in Sodium Chloride 0.9% 250 ML 250 ML IVPB SCH (13:51)
[2021-01-06] MEDS: Vancomycin HCl 1.75 GM in Sodium Chloride 0.9% 500 ML IVPB SCH (17:19)
[2021-01-06 18:17] LABS: Vancomycin, Trough 23.2 ug/mL
[2021-01-07] MEDS: Levothyroxine Sodium 100 MCG TAB PO SCH (04:55)
[2021-01-07] MEDS: Cefepime 2 GM in Sodium Chloride 0.9% 100 ML IVPB SCH ×3 (04:55→20:13)
[2021-01-07 05:30] LABS: Hemoglobin 10.6 g/dL (12.0-16.0); Mean Corpuscular HGB CONC 31.5 g/dL (32.0-36.0); Mean Corpuscular Hemoglobin 28.9 pg (27.0-31.0); Mean Corpuscular Volume 91.7 fL (78.0-98.0); Mean Platelet Volume 7.2 fL (7.4-10.4); Platelet Count 350 thou/uL (130-400); RBC Distribution Width 14.8 % (11.5-14.5); Red Blood Cell (RBC) Count 3.68 mill/uL (4.20-5.40); White Blood Cell (WBC) Count 25.2 thou/uL (4.8-10.8)
[2021-01-07 05:46] LABS: Anion Gap 14 mmol/L (10-20); BUN (Urea Nitrogen) 31 mg/dL (9.8-20.1); Calc. Creatinine Clearance 124 mL/min (70-130); Calcium 8.8 mg/dL (7.8-10.44); Carbon Dioxide 24 mmol/L (22-29); Chloride 108 mmol/L (98-107); Glucose 178 mg/dL (70-105); Potassium 3.9 mmol/L (3.5-5.1); Sodium 142 mmol/L (136-145)
[2021-01-07 06:58] LABS: Band 5 % (5-11); Lymphocytes 4 % (21-51); MDiff Complete? YES; Monocytes 6 % (0-10); Neutrophil 85 % (42-75)
[2021-01-07] MEDS: Mometasone 200 MCG/Formoterol 5 MCG 120 PUFF INHALER INH SCH ×4 (07:24→18:54)
[2021-01-07] MEDS: Bupropion 100 MG SR TAB PO SCH (08:46)
[2021-01-07] MEDS: Cholecalciferol 1,000 UNITS (25 MCG) TAB PO SCH (08:46)
[2021-01-07] MEDS: Amitriptyline HCl 25 MG TAB PO SCH ×2 (08:46→20:15)
[2021-01-07] MEDS: Amlodipine 5 MG TAB PO SCH (08:46)
[2021-01-07] MEDS: guaiFENesin ER 600 MG TAB PO SCH ×2 (08:47→20:15)
[2021-01-07] MEDS: DULoxetine 60 MG CAP PO SCH (08:47)
[2021-01-07] MEDS: predniSONE 1 MG TAB PO SCH (08:47)
[2021-01-07] MEDS: Enoxaparin Sodium 40 MG/0.4 ML SYRINGE SC SCH (08:47)
[2021-01-07] MEDS: Folic Acid 1 MG TAB PO SCH (08:47)
[2021-01-07] MEDS: Gabapentin 300 MG CAP PO SCH ×3 (08:47→20:14)
[2021-01-07] MEDS: NPH, Human Insulin Isophane 300 UNIT/3 ML VIAL SC SCH (08:48)
[2021-01-07] MEDS ORDERED: Non-Formulary Item 1 EACH (Cholecalciferol (Vitamin D3) [Vitamin D] 1000 UNIT Capsule) PO SCH (09:00)
[2021-01-07] MEDS: HumaLOG 300 UNITS/3 ML VIAL SC PRN (11:09)
[2021-01-07] MEDS: Azithromycin 500 MG in Sodium Chloride 0.9% 250 ML 250 ML IVPB SCH (11:59)
[2021-01-07] MEDS: Sodium Chloride 0.65% Nasal 44 ML BOT EA NARE SCH ×2 (14:55→20:14)
[2021-01-07 17:47] LABS: Vancomycin, Trough 10.1 ug/mL
[2021-01-07] MEDS: Vancomycin HCl 1.75 GM in Sodium Chloride 0.9% 500 ML IVPB SCH (18:31)
[2021-01-07] MEDS: Vancomycin 1 GM in Premix Bag 1 BAG IVPB SCH (18:32)
[2021-01-07] MEDS ORDERED: NPH, Human Insulin Isophane 300 UNIT/3 ML VIAL SC SCH (21:00)
[2021-01-08 05:18] LABS: #Eosinphils 0.4 thou/uL (0.0-0.7); #Lymphocytes 1.7 thou/uL (1.20-3.40); #Monocytes 1.1 thou/uL (0.11-0.59); #Neutrophils 12.5 thou/uL (1.40-6.50); %Basophils 0.2 % (0.0-1.0); %Eosinophils 2.3 % (0.0-10.0); %Neutrophils 79.6 % (42.0-75.0); Hemoglobin 10.9 g/dL (12.0-16.0); Mean Corpuscular HGB CONC 31.4 g/dL (32.0-36.0); Mean Corpuscular Hemoglobin 28.7 pg (27.0-31.0); Mean Corpuscular Volume 91.5 fL (78.0-98.0); Mean Platelet Volume 7.4 fL (7.4-10.4); Platelet Count 366 thou/uL (130-400); RBC Distribution Width 14.9 % (11.5-14.5); Red Blood Cell (RBC) Count 3.79 mill/uL (4.20-5.40); White Blood Cell (WBC) Count 15.8 thou/uL (4.8-10.8)
[2021-01-08] MEDS: Levothyroxine Sodium 100 MCG TAB PO SCH (05:22)
[2021-01-08] MEDS: Cefepime 2 GM in Sodium Chloride 0.9% 100 ML IVPB SCH ×4 (05:22→19:39)
[2021-01-08 05:35] LABS: Anion Gap 11 mmol/L (10-20); BUN (Urea Nitrogen) 27 mg/dL (9.8-20.1); Calc. Creatinine Clearance 134 mL/min (70-130); Calcium 8.7 mg/dL (7.8-10.44); Carbon Dioxide 26 mmol/L (22-29); Chloride 105 mmol/L (98-107); Glucose 150 mg/dL (70-105); Potassium 3.6 mmol/L (3.5-5.1); Sodium 138 mmol/L (136-145)
[2021-01-08] MEDS: Vancomycin 1 GM in Premix Bag 1 BAG IVPB SCH ×2 (07:07→18:10)
[2021-01-08] MEDS: Mometasone 200 MCG/Formoterol 5 MCG 120 PUFF INHALER INH SCH ×2 (08:17→18:24)
[2021-01-08] MEDS ORDERED: Furosemide 40 MG/4 ML VIAL SLOW IVP SCH (08:45)
[2021-01-08] MEDS ORDERED: Potassium Chloride 20 MEQ TAB PO SCH (08:45)
[2021-01-08] MEDS ORDERED: NPH, Human Insulin Isophane 300 UNIT/3 ML VIAL SC SCH (09:00)
[2021-01-08] MEDS: DULoxetine 60 MG CAP PO SCH (09:14)
[2021-01-08] MEDS: Gabapentin 300 MG CAP PO SCH ×3 (09:14→12:34)
[2021-01-08] MEDS: Cholecalciferol 1,000 UNITS (25 MCG) TAB PO SCH (09:15)
[2021-01-08] MEDS: Bupropion 100 MG SR TAB PO SCH (09:15)
[2021-01-08] MEDS: guaiFENesin ER 600 MG TAB PO SCH (09:15)
[2021-01-08] MEDS: Folic Acid 1 MG TAB PO SCH (09:15)
[2021-01-08] MEDS: Amlodipine 5 MG TAB PO SCH (09:16)
[2021-01-08] MEDS: predniSONE 1 MG TAB PO SCH (09:16)
[2021-01-08] MEDS: Amitriptyline HCl 25 MG TAB PO SCH (09:16)
[2021-01-08] MEDS: Enoxaparin Sodium 40 MG/0.4 ML SYRINGE SC SCH (09:16)
[2021-01-08] MEDS: Sodium Chloride 0.65% Nasal 44 ML BOT EA NARE SCH ×3 (09:20→21:17)
[2021-01-08 09:55] LABS: Magnesium 2.2 mg/dL (1.6-2.6)
[2021-01-08] MEDS ORDERED: guaiFENesin/DM ER PO PRN (11:31)
[2021-01-08] MEDS ORDERED: Cepastat Lozenges 1 LOZ PO PRN (11:31)
[2021-01-08] MEDS ORDERED: Benzonatate 100 MG CAP PO PRN (11:31)
[2021-01-08] MEDS: hydrALAZINE 20 MG/ML VIAL SLOW IVP PRN (12:15)
[2021-01-08] MEDS: HumaLOG 300 UNITS/3 ML VIAL SC PRN (12:17)
[2021-01-08 12:38] LABS: Actual Bicarbonate (HCO3a) 25.4 mEq/L (22-28); Base Excess (BEa) 0.7 mEq/L (-2.0 to +3.0); CO2 Tension 40.9 mmHg (35.0-45.0); Calcium, Ionized (arterial) 1.14 mmol/L (1.12-1.30); Carboxyhemoglobin (COHb) 0.7 gm% (0.0-3.0); Hemoglobin (Hb) 11.1 g/dL (12.0-16.0); Potassium - ABG Lab 3.81 mmol/L (3.70-5.30); pH, Arterial 7.41 (7.35-7.45)
[2021-01-08 12:39] LABS: ALV-art Gradient 67.195 mmHg (0-20); O2 Tension (PaO2), arterial 52.8 mmHg (80.0-100.0); Puncture Site RRA
[2021-01-08] MEDS: Azithromycin 500 MG in Sodium Chloride 0.9% 250 ML 250 ML IVPB SCH (14:40)
[2021-01-08] MEDS ORDERED: Gabapentin 300 MG CAP PO SCH (15:00)
[2021-01-08] MEDS ORDERED: Propofol 1,000 MG/100 ML VIAL IV ONE (16:40)
[2021-01-08] MEDS ORDERED: Midazolam HCl 2 mg/2 ml Vial ONE (16:41)
[2021-01-08] MEDS ORDERED: Vecuronium 10 MG VIAL ONE (16:41)
[2021-01-08] MEDS ORDERED: Rocuronium Bromide 10 MG/ML (10ML VIAL) ONE (16:59)
[2021-01-08] MEDS ORDERED: Electrolyte Replacement Protocol 1 EACH IVPB PRN (17:21)
[2021-01-08] MEDS ORDERED: Ventilator Sedation Protocol 1 EACH FS SCH ×2 (17:30)
[2021-01-08] MEDS ORDERED: Propofol BOLUS 1,000 MG/100 ML VIAL IV PRN (18:00)
[2021-01-08] MEDS ORDERED: Morphine 2 MG/ML VIAL SLOW IVP PRN (18:00)
[2021-01-08] MEDS ORDERED: Fentanyl BOLUS 250 ML IVPB PRN (18:00)
[2021-01-08] MEDS ORDERED: DISCONTINUE PREVIOUS NARCOTIC PAIN MEDICATIONS AND BENZODIAZEPINES FS SCH (18:00)
[2021-01-08 19:35] LABS: Actual Bicarbonate (HCO3a) 24.4 mEq/L (22-28); Base Excess (BEa) -0.2 mEq/L (-2.0 to +3.0); CO2 Tension 39.6 mmHg (35.0-45.0); Calcium, Ionized (arterial) 1.13 mmol/L (1.12-1.30); Carboxyhemoglobin (COHb) 0.4 gm% (0.0-3.0); Hemoglobin (Hb) 10.2 g/dL (12.0-16.0); O2 Tension (PaO2), arterial 66.9 mmHg (80.0-100.0); Potassium - ABG Lab 3.58 mmol/L (3.70-5.30); pH, Arterial 7.41 (7.35-7.45)
[2021-01-08] MEDS: Propofol 1,000 MG/100 ML VIAL IV SCH ×2 (19:40→23:13)
[2021-01-08 19:41] LABS: Puncture Site RRA
[2021-01-08] MEDS: methylPREDNISolone Sod Succ 40 MG VIAL IVP SCH (20:18)
[2021-01-08 20:32] LABS: Body Fluid Source Bronchioalveol Lavag; Tube # EDTA
[2021-01-08 20:33] LABS: BF Color Colorless; BF RBC Count - Manual 394 /cu.mm; BF WBC/Nonhematics Ct.-Manual 434 /cu.mm; Clarity Hazy (Clear)
[2021-01-08 20:43] LABS: BF Segmented Neutrophils 46 %; Cell Count Non Hematic 39 %; Eosinophils 10 %; Lymphocytes 5 %
[2021-01-08] MEDS: Lorazepam 2 MG/ML VIAL SLOW IVP PRN (21:17)
[2021-01-08] MEDS ORDERED: Fentanyl CADD 100 ML ONE (21:33)
[2021-01-08] MEDS: Fentanyl CADD 100 ML IV SCH (21:39)
[2021-01-09] MEDS: HumaLOG 300 UNITS/3 ML VIAL SC PRN ×5 (00:20→16:15)
[2021-01-09] MEDS: Propofol 1,000 MG/100 ML VIAL IV PRN ×3 (01:51→20:01)
[2021-01-09] MEDS: Cefepime 2 GM in Sodium Chloride 0.9% 100 ML IVPB SCH ×3 (03:34→20:00)
[2021-01-09 05:02] LABS: ALT (SGPT) 60 U/L (8-55); AST (SGOT) 111 U/L (5-34); Albumin 2.9 g/dL (3.5-5.0); Alkaline Phosphatase 120 U/L (40-110); Anion Gap 12 mmol/L (10-20); BUN (Urea Nitrogen) 25 mg/dL (9.8-20.1); Bilirubin, Total 0.5 mg/dL (0.2-1.2); Calc. Creatinine Clearance 137 mL/min (70-130); Calcium 8.5 mg/dL (7.8-10.44); Carbon Dioxide 24 mmol/L (22-29); Chloride 106 mmol/L (98-107); Globulin 2.6 g/dL (2.4-3.5); Glucose 183 mg/dL (70-105); Magnesium 2.1 mg/dL (1.6-2.6); Phosphorus 3.7 mg/dL (2.3-4.7); Potassium 4.4 mmol/L (3.5-5.1); Protein, Total 5.5 g/dL (6.0-8.3); Sodium 138 mmol/L (136-145)
[2021-01-09 05:11] LABS: Vancomycin, Trough 20.4 ug/mL
[2021-01-09] MEDS: Levothyroxine Sodium 100 MCG TAB PO SCH (05:28)
[2021-01-09] MEDS: Vancomycin 1 GM in Premix Bag 1 BAG IVPB SCH ×2 (05:37→17:07)
[2021-01-09 06:33] LABS: Hemoglobin 10.2 g/dL (12.0-16.0); Mean Corpuscular HGB CONC 31.7 g/dL (32.0-36.0); Mean Corpuscular Hemoglobin 29.1 pg (27.0-31.0); Mean Corpuscular Volume 91.8 fL (78.0-98.0); Mean Platelet Volume 7.7 fL (7.4-10.4); Platelet Count 307 thou/uL (130-400); RBC Distribution Width 14.9 % (11.5-14.5); Red Blood Cell (RBC) Count 3.52 mill/uL (4.20-5.40); White Blood Cell (WBC) Count 15.7 thou/uL (4.8-10.8)
[2021-01-09 06:45] LABS: Band 5 % (5-11); Lymphocytes 8 % (21-51); MDiff Complete? YES; Monocytes 6 % (0-10); Neutrophil 81 % (42-75)
[2021-01-09] MEDS: Mometasone 200 MCG/Formoterol 5 MCG 120 PUFF INHALER INH SCH ×2 (07:57→18:16)
[2021-01-09] MEDS ORDERED: NPH, Human Insulin Isophane 300 UNIT/3 ML VIAL SC SCH (09:00)
[2021-01-09] MEDS: Sodium Chloride 0.65% Nasal 44 ML BOT EA NARE SCH ×3 (09:17→21:18)
[2021-01-09] MEDS: Pantoprazole 40 MG VIAL IVP SCH (09:18)
[2021-01-09] MEDS: methylPREDNISolone Sod Succ 40 MG VIAL IVP SCH ×2 (09:19→21:17)
[2021-01-09] MEDS: Bupropion 100 MG SR TAB PO SCH (09:20)
[2021-01-09] MEDS: Enoxaparin Sodium 40 MG/0.4 ML SYRINGE SC SCH (09:20)
[2021-01-09] MEDS: DULoxetine 60 MG CAP PO SCH (09:20)
[2021-01-09] MEDS: Amlodipine 5 MG TAB PO SCH (09:21)
[2021-01-09] MEDS: Cholecalciferol 1,000 UNITS (25 MCG) TAB PO SCH (09:21)
[2021-01-09] MEDS: Folic Acid 1 MG TAB PO SCH (09:22)
[2021-01-09] MEDS: Propofol 1,000 MG/100 ML VIAL IV SCH ×2 (11:07→16:15)
[2021-01-09] MEDS: Azithromycin 500 MG in Sodium Chloride 0.9% 250 ML 250 ML IVPB SCH (12:56)
[2021-01-09] MEDS: Lorazepam 2 MG/ML VIAL SLOW IVP PRN (13:42)
[2021-01-09] MEDS ORDERED: methylPREDNISolone Sod Succ/PF 125 MG/2 ML VIAL IVP SCH (14:00)
[2021-01-09] MEDS ORDERED: Fentanyl CADD 100 ML ONE (16:10)
[2021-01-10] MEDS: Propofol 1,000 MG/100 ML VIAL IV PRN ×4 (00:05→20:52)
[2021-01-10] MEDS: Cefepime 2 GM in Sodium Chloride 0.9% 100 ML IVPB SCH ×3 (03:22→20:06)
[2021-01-10] MEDS: HumaLOG 300 UNITS/3 ML VIAL SC PRN ×4 (04:08→22:42)
[2021-01-10] MEDS: Vancomycin 1 GM in Premix Bag 1 BAG IVPB SCH ×2 (05:02→17:00)
[2021-01-10] MEDS: Levothyroxine Sodium 100 MCG TAB PO SCH (05:02)
[2021-01-10] MEDS: methylPREDNISolone Sod Succ 40 MG VIAL IVP SCH ×3 (05:03→22:49)
[2021-01-10 05:07] LABS: Hemoglobin 11.8 g/dL (12.0-16.0); Mean Corpuscular Hemoglobin 27.7 pg (27.0-31.0); Mean Corpuscular Volume 92.2 fL (78.0-98.0); Mean Platelet Volume 7.5 fL (7.4-10.4); Platelet Count 290 thou/uL (130-400); Red Blood Cell (RBC) Count 4.28 mill/uL (4.20-5.40); White Blood Cell (WBC) Count 16.3 thou/uL (4.8-10.8)
[2021-01-10 05:10] LABS: ALT (SGPT) 47 U/L (8-55); AST (SGOT) 34 U/L (5-34); Albumin 2.8 g/dL (3.5-5.0); Alkaline Phosphatase 115 U/L (40-110); Anion Gap 17 mmol/L (10-20); BUN (Urea Nitrogen) 26 mg/dL (9.8-20.1); Bilirubin, Total 0.3 mg/dL (0.2-1.2); Calc. Creatinine Clearance 0 mL/min (70-130); Calcium 8.5 mg/dL (7.8-10.44); Carbon Dioxide 19 mmol/L (22-29); Chloride 106 mmol/L (98-107); Globulin 2.7 g/dL (2.4-3.5); Glucose 211 mg/dL (70-105); Magnesium 2.2 mg/dL (1.6-2.6); Phosphorus 4.4 mg/dL (2.3-4.7); Potassium 4.7 mmol/L (3.5-5.1); Protein, Total 5.5 g/dL (6.0-8.3); Sodium 137 mmol/L (136-145)
[2021-01-10 05:43] LABS: Band 6 % (5-11); Lymphocytes 2 % (21-51); MDiff Complete? YES; Metamyelocyte 2 % (0-0); Monocytes 6 % (0-10); Neutrophil 84 % (42-75)
[2021-01-10] MEDS: Mometasone 200 MCG/Formoterol 5 MCG 120 PUFF INHALER INH SCH ×2 (07:00→18:09)
[2021-01-10 07:17] LABS: Actual Bicarbonate (HCO3a) 22.3 mEq/L (22-28); Base Excess (BEa) -2.7 mEq/L (-2.0 to +3.0); CO2 Tension 39.3 mmHg (35.0-45.0); Calcium, Ionized (arterial) 1.22 mmol/L (1.12-1.30); Carboxyhemoglobin (COHb) 0.6 gm% (0.0-3.0); Hemoglobin (Hb) 11.2 g/dL (12.0-16.0); O2 Tension (PaO2), arterial 76.8 mmHg (80.0-100.0); Potassium - ABG Lab 4.56 mmol/L (3.70-5.30); pH, Arterial 7.37 (7.35-7.45)
[2021-01-10] MEDS ORDERED: predniSONE 5 MG TAB PO SCH (08:00)
[2021-01-10 08:22] LABS: Puncture Site LRA
[2021-01-10 08:23] LABS: ALV-art Gradient 159.275 mmHg (0-20)
[2021-01-10] MEDS: Folic Acid 1 MG TAB PO SCH (09:14)
[2021-01-10] MEDS: Propofol 1,000 MG/100 ML VIAL IV SCH ×2 (09:14→12:59)
[2021-01-10] MEDS: Cholecalciferol 1,000 UNITS (25 MCG) TAB PO SCH (09:14)
[2021-01-10] MEDS: Amlodipine 5 MG TAB PO SCH (09:14)
[2021-01-10] MEDS: Enoxaparin Sodium 40 MG/0.4 ML SYRINGE SC SCH (09:15)
[2021-01-10] MEDS: DULoxetine 60 MG CAP PO SCH (09:15)
[2021-01-10] MEDS: Bupropion 100 MG SR TAB PO SCH (09:15)
[2021-01-10] MEDS: Pantoprazole 40 MG VIAL IVP SCH (09:15)
[2021-01-10] MEDS: Sodium Chloride 0.65% Nasal 44 ML BOT EA NARE SCH ×3 (09:21→21:14)
[2021-01-10] MEDS ORDERED: Fentanyl CADD 100 ML ONE (11:22)
[2021-01-10] MEDS: Azithromycin 500 MG in Sodium Chloride 0.9% 250 ML 250 ML IVPB SCH (13:01)
[2021-01-10] MEDS: Lorazepam 2 MG/ML VIAL SLOW IVP PRN (13:14)
[2021-01-10] MEDS ORDERED: Vecuronium 10 MG VIAL IV SCH (14:15)
[2021-01-10] MEDS ORDERED: Midazolam HCl 2 mg/2 ml Vial SLOW IVP SCH (14:15)
[2021-01-10] MEDS ORDERED: Rocuronium Bromide 10 MG/ML (10ML VIAL) IVP SCH (14:30)
[2021-01-10 17:48] LABS: Vancomycin, Trough 21.4 ug/mL
[2021-01-11] MEDS: Propofol 1,000 MG/100 ML VIAL IV PRN ×6 (00:56→20:45)
[2021-01-11] MEDS: HumaLOG 300 UNITS/3 ML VIAL SC PRN ×3 (04:12→22:21)
[2021-01-11 04:29] LABS: Anion Gap 19 mmol/L (10-20); BUN (Urea Nitrogen) 32 mg/dL (9.8-20.1); Calc. Creatinine Clearance 146 mL/min (70-130); Calcium 8.8 mg/dL (7.8-10.44); Carbon Dioxide 16 mmol/L (22-29); Chloride 107 mmol/L (98-107); Glucose 221 mg/dL (70-105); Sodium 137 mmol/L (136-145)
[2021-01-11] MEDS: Cefepime 2 GM in Sodium Chloride 0.9% 100 ML IVPB SCH ×3 (04:39→20:39)
[2021-01-11 05:22] LABS: Band 9 % (5-11); Hemoglobin 10.9 g/dL (12.0-16.0); Lymphocytes 6 % (21-51); MDiff Complete? YES; Mean Corpuscular HGB CONC 31.3 g/dL (32.0-36.0); Mean Corpuscular Hemoglobin 28.5 pg (27.0-31.0); Mean Corpuscular Volume 91.3 fL (78.0-98.0); Mean Platelet Volume 8.6 fL (7.4-10.4); Monocytes 9 % (0-10); Neutrophil 76 % (42-75); Platelet Count 301 thou/uL (130-400); RBC Distribution Width 14.8 % (11.5-14.5); Red Blood Cell (RBC) Count 3.83 mill/uL (4.20-5.40); White Blood Cell (WBC) Count 23.1 thou/uL (4.8-10.8)
[2021-01-11] MEDS: Levothyroxine Sodium 100 MCG TAB PO SCH (05:35)
[2021-01-11] MEDS: methylPREDNISolone Sod Succ 40 MG VIAL IVP SCH ×2 (05:36→20:40)
[2021-01-11] MEDS ORDERED: Vancomycin HCl 750 MG in Sodium Chloride 0.9% 250 ML 250 ML IVPB SCH ×3 (06:00→21:00)
[2021-01-11] MEDS: Mometasone 200 MCG/Formoterol 5 MCG 120 PUFF INHALER INH SCH ×2 (06:51→19:17)
[2021-01-11] MEDS ORDERED: Fentanyl CADD 100 ML ONE ×2 (08:10→21:47)
[2021-01-11] MEDS: Cholecalciferol 1,000 UNITS (25 MCG) TAB PO SCH (08:17)
[2021-01-11] MEDS: Enoxaparin Sodium 40 MG/0.4 ML SYRINGE SC SCH (08:17)
[2021-01-11] MEDS: Amlodipine 5 MG TAB PO SCH (08:17)
[2021-01-11] MEDS: Folic Acid 1 MG TAB PO SCH (08:17)
[2021-01-11] MEDS: Fentanyl CADD 100 ML IV SCH ×2 (08:18→22:15)
[2021-01-11] MEDS: Sodium Chloride 0.65% Nasal 44 ML BOT EA NARE SCH ×3 (08:18→20:41)
[2021-01-11] MEDS: Pantoprazole 40 MG VIAL IVP SCH (08:18)
[2021-01-11 08:21] LABS: Vancomycin, Random 21.7 ug/mL (See Comment)
[2021-01-12] MEDS: Propofol 1,000 MG/100 ML VIAL IV PRN ×6 (00:01→20:15)
[2021-01-12] MEDS: Cefepime 2 GM in Sodium Chloride 0.9% 100 ML IVPB SCH ×3 (04:26→19:58)
[2021-01-12] MEDS: HumaLOG 300 UNITS/3 ML VIAL SC PRN ×4 (04:41→22:22)
[2021-01-12] MEDS: Levothyroxine Sodium 100 MCG TAB PO SCH (05:07)
[2021-01-12 07:28] LABS: Anion Gap 12 mmol/L (10-20); BUN (Urea Nitrogen) 37 mg/dL (9.8-20.1); Calc. Creatinine Clearance 132 mL/min (70-130); Calcium 8.9 mg/dL (7.8-10.44); Carbon Dioxide 22 mmol/L (22-29); Chloride 110 mmol/L (98-107); Glucose 280 mg/dL (70-105); Potassium 4.7 mmol/L (3.5-5.1); Sodium 139 mmol/L (136-145)
[2021-01-12 07:34] LABS: Hemoglobin 11.1 g/dL (12.0-16.0); Mean Corpuscular HGB CONC 31.5 g/dL (32.0-36.0); Mean Corpuscular Hemoglobin 28.5 pg (27.0-31.0); Mean Corpuscular Volume 90.4 fL (78.0-98.0); Mean Platelet Volume 7.2 fL (7.4-10.4); Platelet Count 374 thou/uL (130-400); RBC Distribution Width 14.9 % (11.5-14.5); Red Blood Cell (RBC) Count 3.89 mill/uL (4.20-5.40); White Blood Cell (WBC) Count 18.4 thou/uL (4.8-10.8)
[2021-01-12 07:51] LABS: Band 3 % (5-11); Eosinophils 1 % (0-10); Lymphocytes 11 % (21-51); MDiff Complete? YES; Monocytes 4 % (0-10); Myelocyte 3 % (0-0); Neutrophil 75 % (42-75); RBC Morphology Normal; Reactive Lymphocytes 3 % (0-10)
[2021-01-12] MEDS: Mometasone 200 MCG/Formoterol 5 MCG 120 PUFF INHALER INH SCH ×2 (07:52→18:02)
[2021-01-12 08:04] LABS: Actual Bicarbonate (HCO3a) 22.3 mEq/L (22-28); Base Excess (BEa) -2.7 mEq/L (-2.0 to +3.0); CO2 Tension 39.3 mmHg (35.0-45.0); Calcium, Ionized (arterial) 1.23 mmol/L (1.12-1.30); Carboxyhemoglobin (COHb) 0.1 gm% (0.0-3.0); Hemoglobin (Hb) 11.4 g/dL (12.0-16.0); O2 Tension (PaO2), arterial 73.5 mmHg (80.0-100.0); Potassium - ABG Lab 4.29 mmol/L (3.70-5.30); pH, Arterial 7.37 (7.35-7.45)
[2021-01-12 08:05] LABS: ALV-art Gradient 162.575 mmHg (0-20); Puncture Site LRA
[2021-01-12] MEDS: Enoxaparin Sodium 40 MG/0.4 ML SYRINGE SC SCH (08:39)
[2021-01-12] MEDS: Cholecalciferol 1,000 UNITS (25 MCG) TAB PO SCH (08:39)
[2021-01-12] MEDS: Folic Acid 1 MG TAB PO SCH (08:39)
[2021-01-12] MEDS: methylPREDNISolone Sod Succ 40 MG VIAL IVP SCH ×2 (08:40→20:15)
[2021-01-12] MEDS: Pantoprazole 40 MG VIAL IVP SCH (08:40)
[2021-01-12] MEDS: Amlodipine 5 MG TAB PO SCH (08:40)
[2021-01-12] MEDS: Sodium Chloride 0.65% Nasal 44 ML BOT EA NARE SCH ×3 (08:41→20:15)
[2021-01-12 10:16] LABS: HIV-1 Quantitative, RNA PCR <20 copies/mL (.)
[2021-01-12] MEDS ORDERED: Fentanyl CADD 100 ML ONE (11:08)
[2021-01-12] MEDS: Fentanyl CADD 100 ML IV SCH (11:14)
[2021-01-12 12:12] LABS: SARS-CoV-2 PCR by NAA Not Detected (NotDetected)
[2021-01-13 04:22] LABS: Anion Gap 16 mmol/L (10-20); BUN (Urea Nitrogen) 41 mg/dL (9.8-20.1); Calc. Creatinine Clearance 120 mL/min (70-130); Calcium 9.1 mg/dL (7.8-10.44); Carbon Dioxide 21 mmol/L (22-29); Chloride 107 mmol/L (98-107); Glucose 379 mg/dL (70-105); Potassium 5.2 mmol/L (3.5-5.1); Sodium 139 mmol/L (136-145)
[2021-01-13] MEDS: Cefepime 2 GM in Sodium Chloride 0.9% 100 ML IVPB SCH ×3 (04:47→19:42)
[2021-01-13 04:54] LABS: Anisocytosis SLIGHT = 6-15 cells (100X) (0-5/hpf); Band 2 % (5-11); Hemoglobin 11.5 g/dL (12.0-16.0); Hypochromia SLIGHT = 6-15 cells (100X) (0-5/hpf); Lymphocytes 10 % (21-51); MDiff Complete? YES; Mean Corpuscular HGB CONC 30.9 g/dL (32.0-36.0); Mean Corpuscular Hemoglobin 28.4 pg (27.0-31.0); Mean Corpuscular Volume 91.7 fL (78.0-98.0); Mean Platelet Volume 7.4 fL (7.4-10.4); Metamyelocyte 1 % (0-0); Monocytes 7 % (0-10); Neutrophil 79 % (42-75); Platelet Count 371 thou/uL (130-400); Platelet Morphology Comment Appears Adequate; Polychromasia SLIGHT = 2-3 cells (100X) (0-2/hpf); Reactive Lymphocytes 1 % (0-10); Red Blood Cell (RBC) Count 4.06 mill/uL (4.20-5.40); White Blood Cell (WBC) Count 21.3 thou/uL (4.8-10.8)
[2021-01-13] MEDS: Lorazepam 2 MG/ML VIAL SLOW IVP PRN ×2 (04:56→20:03)
[2021-01-13] MEDS: Levothyroxine Sodium 100 MCG TAB PO SCH (04:57)
[2021-01-13] MEDS: HumaLOG 300 UNITS/3 ML VIAL SC PRN ×4 (04:58→22:20)
[2021-01-13] MEDS: hydrALAZINE 20 MG/ML VIAL SLOW IVP PRN ×2 (05:15→15:33)
[2021-01-13] MEDS ORDERED: Fentanyl CADD 100 ML ONE (06:01)
[2021-01-13] MEDS: Fentanyl CADD 100 ML IV SCH (06:10)
[2021-01-13 06:56] LABS: Actual Bicarbonate (HCO3a) 19.7 mEq/L (22-28); Base Excess (BEa) -4.3 mEq/L (-2.0 to +3.0); CO2 Tension 32.4 mmHg (35.0-45.0); Calcium, Ionized (arterial) 1.24 mmol/L (1.12-1.30); Carboxyhemoglobin (COHb) 0.1 gm% (0.0-3.0); Hemoglobin (Hb) 11.9 g/dL (12.0-16.0); O2 Tension (PaO2), arterial 81.5 mmHg (80.0-100.0); Potassium - ABG Lab 4.59 mmol/L (3.70-5.30)
[2021-01-13 07:00] LABS: Puncture Site RRA
[2021-01-13] MEDS: Mometasone 200 MCG/Formoterol 5 MCG 120 PUFF INHALER INH SCH ×2 (07:13→17:56)
[2021-01-13] MEDS: Enoxaparin Sodium 40 MG/0.4 ML SYRINGE SC SCH (08:54)
[2021-01-13] MEDS: Folic Acid 1 MG TAB PO SCH (08:55)
[2021-01-13] MEDS: Amlodipine 5 MG TAB PO SCH (08:55)
[2021-01-13] MEDS: Pantoprazole 40 MG VIAL IVP SCH (08:55)
[2021-01-13] MEDS: Cholecalciferol 1,000 UNITS (25 MCG) TAB PO SCH (08:55)
[2021-01-13] MEDS: methylPREDNISolone Sod Succ 40 MG VIAL IVP SCH ×2 (08:55→20:04)
[2021-01-13] MEDS: Sodium Chloride 0.65% Nasal 44 ML BOT EA NARE SCH ×3 (09:10→20:08)
[2021-01-13] MEDS: NPH, Human Insulin Isophane 300 UNIT/3 ML VIAL SC SCH ×2 (09:11→20:04)
[2021-01-13 10:40] LABS: Fungus Stain Final report (.)
[2021-01-14] MEDS: Lorazepam 2 MG/ML VIAL SLOW IVP PRN ×2 (00:25→22:35)
[2021-01-14] MEDS: Cefepime 2 GM in Sodium Chloride 0.9% 100 ML IVPB SCH ×3 (03:19→20:40)
[2021-01-14] MEDS: HumaLOG 300 UNITS/3 ML VIAL SC PRN ×4 (03:46→22:39)
[2021-01-14] MEDS: Levothyroxine Sodium 100 MCG TAB PO SCH (05:48)
[2021-01-14] MEDS: Mometasone 200 MCG/Formoterol 5 MCG 120 PUFF INHALER INH SCH ×2 (07:23→19:21)
[2021-01-14 07:31] LABS: Anion Gap 13 mmol/L (10-20); BUN (Urea Nitrogen) 53 mg/dL (9.8-20.1); CRP (Inflammatory) 1.95 mg/dL (= or < 0.5); Calc. Creatinine Clearance 126 mL/min (70-130); Calcium 8.8 mg/dL (7.8-10.44); Carbon Dioxide 20 mmol/L (22-29); Chloride 111 mmol/L (98-107); Glucose 269 mg/dL (70-105); Potassium 5.2 mmol/L (3.5-5.1); Sodium 139 mmol/L (136-145)
[2021-01-14 07:42] LABS: Actual Bicarbonate (HCO3a) 22.6 mEq/L (22-28); Base Excess (BEa) -1.9 mEq/L (-2.0 to +3.0); CO2 Tension 38.1 mmHg (35.0-45.0); Calcium, Ionized (arterial) 1.31 mmol/L (1.12-1.30); Carboxyhemoglobin (COHb) 0.7 gm% (0.0-3.0); Hemoglobin (Hb) 13.5 g/dL (12.0-16.0); O2 Tension (PaO2), arterial 86.4 mmHg (80.0-100.0); Potassium - ABG Lab 4.56 mmol/L (3.70-5.30); pH, Arterial 7.39 (7.35-7.45)
[2021-01-14 07:54] LABS: Puncture Site LRA
[2021-01-14 07:55] LABS: ALV-art Gradient 151.175 mmHg (0-20)
[2021-01-14] MEDS: Enoxaparin Sodium 40 MG/0.4 ML SYRINGE SC SCH (09:09)
[2021-01-14] MEDS: Cholecalciferol 1,000 UNITS (25 MCG) TAB PO SCH (09:09)
[2021-01-14] MEDS: Folic Acid 1 MG TAB PO SCH (09:09)
[2021-01-14] MEDS: Amlodipine 5 MG TAB PO SCH (09:10)
[2021-01-14] MEDS: Sodium Chloride 0.65% Nasal 44 ML BOT EA NARE SCH ×3 (09:10→20:19)
[2021-01-14] MEDS: Pantoprazole 40 MG VIAL IVP SCH (09:10)
[2021-01-14] MEDS: methylPREDNISolone Sod Succ 40 MG VIAL IVP SCH (09:10)
[2021-01-14] MEDS: NPH, Human Insulin Isophane 300 UNIT/3 ML VIAL SC SCH (09:23)
[2021-01-14 10:16] LABS: #Basophils 0.1 thou/uL (0.0-0.2); #Eosinphils 0.5 thou/uL (0.0-0.7); #Lymphocytes 2.6 thou/uL (1.20-3.40); #Monocytes 1.7 thou/uL (0.11-0.59); #Neutrophils 15.8 thou/uL (1.40-6.50); %Basophils 0.3 % (0.0-1.0); %Eosinophils 2.3 % (0.0-10.0); %Lymphocytes 12.7 % (21.0-51.0); %Monocytes 8.3 % (0.0-10.0); %Neutrophils 76.4 % (42.0-75.0); Hemoglobin 11.8 g/dL (12.0-16.0); Mean Corpuscular HGB CONC 31.4 g/dL (32.0-36.0); Mean Corpuscular Hemoglobin 28.8 pg (27.0-31.0); Mean Corpuscular Volume 91.7 fL (78.0-98.0); Mean Platelet Volume 7.4 fL (7.4-10.4); Platelet Count 341 thou/uL (130-400); RBC Distribution Width 15.4 % (11.5-14.5); White Blood Cell (WBC) Count 20.7 thou/uL (4.8-10.8)
[2021-01-14] MEDS ORDERED: methylPREDNISolone Sod Succ 40 MG VIAL IVP SCH (12:00)
[2021-01-14] MEDS ORDERED: NPH, Human Insulin Isophane 300 UNIT/3 ML VIAL SC SCH ×2 (12:00→21:00)
[2021-01-14 12:05] LABS: Bilirubin Negative (Negative); Blood, Urine 3+ (Negative); Clarity Clear (Clear); Glucose, Urine (Dipstick) Greater than 1000 mg/dL (Negative); Ketone, Urine Trace mg/dL (Negative); Leukocyte Negative Leu/uL (Negative); Nitrite Negative (Negative); Protein, Urine (Dipstick) 50 mg/dL (Neg-Trace); Specific Gravity, Urine 1.031 (1.002-1.036); Squamous Epithelial None Seen HPF (0-3); Urobilinogen Normal mg/dL (Less than 2); WBC/HPF 0-3 HPF (0-3); pH, Urine 5.5 (5.0-9.0)
[2021-01-14 12:11] LABS: Bacteria/HPF 1+ HPF (None Seen); Yeast-Budding 3+ HPF (None Seen)
[2021-01-14] MEDS: Micafungin 100 MG in Sodium Chloride 0.9% 100 ML IVPB SCH (12:26)
[2021-01-14] MEDS ORDERED: Fentanyl CADD 100 ML ONE (15:05)
[2021-01-14] MEDS: Fentanyl CADD 100 ML IV SCH (15:08)
[2021-01-14 19:12] LABS: A. flavus Negative (Neg:<1:1); A. fumigatus Negative (Neg:<1:1); A. niger Negative (Neg:<1:1)
[2021-01-14] MEDS: methylPREDNISolone Sod Succ/PF 125 MG/2 ML VIAL IVP SCH (20:41)
[2021-01-14] MEDS: hydrALAZINE 20 MG/ML VIAL SLOW IVP PRN (21:40)
[2021-01-15] MEDS: HumaLOG 300 UNITS/3 ML VIAL SC PRN (04:21)
[2021-01-15] MEDS: Lorazepam 2 MG/ML VIAL SLOW IVP PRN (04:25)
[2021-01-15 04:30] LABS: ALT (SGPT) 22 U/L (8-55); AST (SGOT) 13 U/L (5-34); Albumin 2.8 g/dL (3.5-5.0); Alkaline Phosphatase 95 U/L (40-110); Anion Gap 14 mmol/L (10-20); BUN (Urea Nitrogen) 64 mg/dL (9.8-20.1); Bilirubin, Total 0.2 mg/dL (0.2-1.2); Calc. Creatinine Clearance 105 mL/min (70-130); Calcium 9.2 mg/dL (7.8-10.44); Carbon Dioxide 21 mmol/L (22-29); Chloride 110 mmol/L (98-107); Globulin 2.7 g/dL (2.4-3.5); Glucose 415 mg/dL (70-105); Potassium 5.4 mmol/L (3.5-5.1); Protein, Total 5.5 g/dL (6.0-8.3); Sodium 140 mmol/L (136-145)
[2021-01-15] MEDS: hydrALAZINE 20 MG/ML VIAL SLOW IVP PRN (04:32)
[2021-01-15 04:34] LABS: Hemoglobin 11.6 g/dL (12.0-16.0); Mean Corpuscular HGB CONC 30.6 g/dL (32.0-36.0); Mean Corpuscular Hemoglobin 28.7 pg (27.0-31.0); Mean Corpuscular Volume 93.8 fL (78.0-98.0); Mean Platelet Volume 7.8 fL (7.4-10.4); Platelet Count 334 thou/uL (130-400); RBC Distribution Width 15.5 % (11.5-14.5); Red Blood Cell (RBC) Count 4.03 mill/uL (4.20-5.40); White Blood Cell (WBC) Count 25.8 thou/uL (4.8-10.8)
[2021-01-15 04:40] LABS: Anisocytosis SLIGHT = 6-15 cells (100X) (0-5/hpf); Band 1 % (5-11); Hypochromia SLIGHT = 6-15 cells (100X) (0-5/hpf); Lymphocytes 10 % (21-51); MDiff Complete? YES; Monocytes 4 % (0-10); Myelocyte 1 % (0-0); Neutrophil 83 % (42-75); Platelet Morphology Comment Appears Adequate; Polychromasia SLIGHT = 2-3 cells (100X) (0-2/hpf); Reactive Lymphocytes 1 % (0-10)
[2021-01-15] MEDS: Levothyroxine Sodium 100 MCG TAB PO SCH (05:28)
[2021-01-15] MEDS: Mometasone 200 MCG/Formoterol 5 MCG 120 PUFF INHALER INH SCH ×2 (06:49→19:05)
[2021-01-15 07:01] LABS: Base Excess (BEa) -1.1 mEq/L (-2.0 to +3.0); CO2 Tension 36.1 mmHg (35.0-45.0); Carboxyhemoglobin (COHb) 0.3 gm% (0.0-3.0); Hemoglobin (Hb) 11.8 g/dL (12.0-16.0); pH, Arterial 7.42 (7.35-7.45)
[2021-01-15 07:03] LABS: ALV-art Gradient -79.475 mmHg (0-20); Puncture Site LRA
[2021-01-15] MEDS ORDERED: Dextrose 50% Abboject 50 ML SYRINGE SLOW IVP PRN (08:51)
[2021-01-15] MEDS ORDERED: Dextrose 5% in Water 1,000 ML IV PRN (08:51)
[2021-01-15] MEDS: Pantoprazole 40 MG VIAL IVP SCH (08:54)
[2021-01-15] MEDS: methylPREDNISolone Sod Succ/PF 125 MG/2 ML VIAL IVP SCH ×2 (08:55→20:41)
[2021-01-15] MEDS: Enoxaparin Sodium 40 MG/0.4 ML SYRINGE SC SCH (08:55)
[2021-01-15] MEDS: Cholecalciferol 1,000 UNITS (25 MCG) TAB PO SCH (08:55)
[2021-01-15] MEDS: Amlodipine 5 MG TAB PO SCH (08:55)
[2021-01-15] MEDS: Sodium Chloride 0.65% Nasal 44 ML BOT EA NARE SCH ×3 (08:55→20:40)
[2021-01-15] MEDS: Folic Acid 1 MG TAB PO SCH (08:55)
[2021-01-15] MEDS: NPH, Human Insulin Isophane 300 UNIT/3 ML VIAL SC SCH ×2 (09:40→21:53)
[2021-01-15] MEDS: Insulin Regular 300 UNITS/3 ML VIAL SC PRN ×3 (09:43→21:56)
[2021-01-15] MEDS: Micafungin 100 MG in Sodium Chloride 0.9% 100 ML IVPB SCH (12:00)
[2021-01-16] MEDS ORDERED: Fentanyl CADD 100 ML ONE (00:55)
[2021-01-16] MEDS: Fentanyl CADD 100 ML IV SCH (01:03)
[2021-01-16] MEDS: hydrALAZINE 20 MG/ML VIAL SLOW IVP PRN (04:36)
[2021-01-16] MEDS: Insulin Regular 300 UNITS/3 ML VIAL SC PRN ×4 (04:37→21:14)
[2021-01-16] MEDS: Levothyroxine Sodium 100 MCG TAB PO SCH (06:33)
[2021-01-16] MEDS: Mometasone 200 MCG/Formoterol 5 MCG 120 PUFF INHALER INH SCH ×2 (07:19→19:06)
[2021-01-16 07:23] LABS: Hemoglobin 11.2 g/dL (12.0-16.0); Mean Corpuscular Hemoglobin 28.6 pg (27.0-31.0); Mean Corpuscular Volume 92.3 fL (78.0-98.0); Mean Platelet Volume 8.1 fL (7.4-10.4); Platelet Count 331 thou/uL (130-400); RBC Distribution Width 15.4 % (11.5-14.5); Red Blood Cell (RBC) Count 3.93 mill/uL (4.20-5.40); White Blood Cell (WBC) Count 26.5 thou/uL (4.8-10.8)
[2021-01-16 07:31] LABS: ALT (SGPT) 23 U/L (8-55); AST (SGOT) 14 U/L (5-34); Albumin 2.8 g/dL (3.5-5.0); Alkaline Phosphatase 78 U/L (40-110); Anion Gap 12 mmol/L (10-20); BUN (Urea Nitrogen) 83 mg/dL (9.8-20.1); Bilirubin, Total 0.2 mg/dL (0.2-1.2); Calc. Creatinine Clearance 103 mL/min (70-130); Calcium 9.5 mg/dL (7.8-10.44); Carbon Dioxide 26 mmol/L (22-29); Chloride 111 mmol/L (98-107); Globulin 2.5 g/dL (2.4-3.5); Glucose 382 mg/dL (70-105); Potassium 5.5 mmol/L (3.5-5.1); Protein, Total 5.3 g/dL (6.0-8.3); Sodium 143 mmol/L (136-145)
[2021-01-16 07:35] LABS: Actual Bicarbonate (HCO3a) 28.7 mEq/L (22-28); Base Excess (BEa) 3.4 mEq/L (-2.0 to +3.0); CO2 Tension 46.8 mmHg (35.0-45.0); Calcium, Ionized (arterial) 1.32 mmol/L (1.12-1.30); Carboxyhemoglobin (COHb) 0.3 gm% (0.0-3.0); Hemoglobin (Hb) 11.2 g/dL (12.0-16.0); O2 Tension (PaO2), arterial 83.2 mmHg (80.0-100.0); Potassium - ABG Lab 5.16 mmol/L (3.70-5.30); pH, Arterial 7.41 (7.35-7.45)
[2021-01-16 07:36] LABS: Puncture Site RRA
[2021-01-16 08:59] LABS: Band 2 % (5-11); Lymphocytes 2 % (21-51); MDiff Complete? YES; Metamyelocyte 1 % (0-0); Monocytes 3 % (0-10); Myelocyte 2 % (0-0); Neutrophil 90 % (42-75); Platelet Morphology Comment Appears Adequate; Polychromasia SLIGHT = 2-3 cells (100X) (0-2/hpf)
[2021-01-16] MEDS: Sodium Chloride 0.65% Nasal 44 ML BOT EA NARE SCH ×3 (09:00→21:13)
[2021-01-16] MEDS: Enoxaparin Sodium 40 MG/0.4 ML SYRINGE SC SCH (09:17)
[2021-01-16] MEDS: methylPREDNISolone Sod Succ/PF 125 MG/2 ML VIAL IVP SCH ×2 (09:18→21:13)
[2021-01-16] MEDS: Pantoprazole 40 MG VIAL IVP SCH (09:19)
[2021-01-16] MEDS: Cholecalciferol 1,000 UNITS (25 MCG) TAB PO SCH (09:19)
[2021-01-16] MEDS: Amlodipine 5 MG TAB PO SCH (09:19)
[2021-01-16] MEDS: Folic Acid 1 MG TAB PO SCH (09:20)
[2021-01-16] MEDS: NPH, Human Insulin Isophane 300 UNIT/3 ML VIAL SC SCH ×2 (09:21→21:14)
[2021-01-16] MEDS: Micafungin 100 MG in Sodium Chloride 0.9% 100 ML IVPB SCH (12:04)
[2021-01-17] MEDS: Levothyroxine Sodium 100 MCG TAB PO SCH (05:28)
[2021-01-17] MEDS: Insulin Regular 300 UNITS/3 ML VIAL SC PRN ×4 (05:30→21:12)
[2021-01-17] MEDS: hydrALAZINE 20 MG/ML VIAL SLOW IVP PRN (05:40)
[2021-01-17 06:27] LABS: Band 3 % (5-11); Hemoglobin 12.3 g/dL (12.0-16.0); Lymphocytes 3 % (21-51); MDiff Complete? YES; Mean Corpuscular HGB CONC 31.6 g/dL (32.0-36.0); Mean Corpuscular Volume 91.9 fL (78.0-98.0); Monocytes 2 % (0-10); Neutrophil 92 % (42-75); Platelet Count 377 thou/uL (130-400); Platelet Morphology Comment Appears Adequate; RBC Distribution Width 15.3 % (11.5-14.5); Red Blood Cell (RBC) Count 4.24 mill/uL (4.20-5.40); White Blood Cell (WBC) Count 27.1 thou/uL (4.8-10.8)
[2021-01-17 06:36] LABS: ALT (SGPT) 30 U/L (8-55); AST (SGOT) 53 U/L (5-34); Alkaline Phosphatase 138 U/L (40-110); Anion Gap 21 mmol/L (10-20); BUN (Urea Nitrogen) 87 mg/dL (9.8-20.1); Bilirubin, Total 0.3 mg/dL (0.2-1.2); Calc. Creatinine Clearance 117 mL/min (70-130); Calcium 9.3 mg/dL (7.8-10.44); Carbon Dioxide 18 mmol/L (22-29); Chloride 109 mmol/L (98-107); Globulin 3.4 g/dL (2.4-3.5); Glucose 319 mg/dL (70-105); Potassium 5.8 mmol/L (3.5-5.1); Protein, Total 6.4 g/dL (6.0-8.3); Sodium 142 mmol/L (136-145)
[2021-01-17] MEDS: Lorazepam 2 MG/ML VIAL SLOW IVP PRN ×4 (06:40→23:19)
[2021-01-17] MEDS ORDERED: Fentanyl CADD 100 ML ONE (06:47)
[2021-01-17] MEDS: Fentanyl CADD 100 ML IV SCH (07:22)
[2021-01-17] MEDS: Mometasone 200 MCG/Formoterol 5 MCG 120 PUFF INHALER INH SCH ×2 (07:45→17:58)
[2021-01-17] MEDS: Amlodipine 5 MG TAB PO SCH (08:59)
[2021-01-17] MEDS: Cholecalciferol 1,000 UNITS (25 MCG) TAB PO SCH (09:00)
[2021-01-17] MEDS: Enoxaparin Sodium 40 MG/0.4 ML SYRINGE SC SCH (09:00)
[2021-01-17] MEDS: Folic Acid 1 MG TAB PO SCH (09:01)
[2021-01-17] MEDS: methylPREDNISolone Sod Succ/PF 125 MG/2 ML VIAL IVP SCH (09:02)
[2021-01-17] MEDS: NPH, Human Insulin Isophane 300 UNIT/3 ML VIAL SC SCH ×2 (09:04→21:10)
[2021-01-17] MEDS: Pantoprazole 40 MG VIAL IVP SCH (09:07)
[2021-01-17] MEDS: Sodium Chloride 0.65% Nasal 44 ML BOT EA NARE SCH ×3 (11:59→21:27)
[2021-01-17] MEDS ORDERED: methylPREDNISolone Sod Succ 40 MG VIAL IVP SCH (12:00)
[2021-01-17] MEDS: Micafungin 100 MG in Sodium Chloride 0.9% 100 ML IVPB SCH (12:22)
[2021-01-18] MEDS: Insulin Regular 300 UNITS/3 ML VIAL SC PRN ×2 (04:06→09:19)
[2021-01-18 04:44] LABS: Anion Gap 14 mmol/L (10-20); BUN (Urea Nitrogen) 84 mg/dL (9.8-20.1); Calc. Creatinine Clearance 144 mL/min (70-130); Calcium 9.6 mg/dL (7.8-10.44); Carbon Dioxide 25 mmol/L (22-29); Chloride 112 mmol/L (98-107); Glucose 281 mg/dL (70-105); Potassium 3.9 mmol/L (3.5-5.1); Sodium 147 mmol/L (136-145)
[2021-01-18 04:47] LABS: Hemoglobin 11.4 g/dL (12.0-16.0); Hypochromia SLIGHT = 6-15 cells (100X) (0-5/hpf); Lymphocytes 13 % (21-51); MDiff Complete? YES; Mean Corpuscular HGB CONC 32.1 g/dL (32.0-36.0); Mean Corpuscular Hemoglobin 29.8 pg (27.0-31.0); Mean Corpuscular Volume 92.7 fL (78.0-98.0); Mean Platelet Volume 8.5 fL (7.4-10.4); Monocytes 5 % (0-10); Neutrophil 82 % (42-75); Platelet Count 251 thou/uL (130-400); Platelet Morphology Comment Appears Adequate; RBC Distribution Width 15.2 % (11.5-14.5); Red Blood Cell (RBC) Count 3.81 mill/uL (4.20-5.40); White Blood Cell (WBC) Count 20.6 thou/uL (4.8-10.8)
[2021-01-18] MEDS: Levothyroxine Sodium 100 MCG TAB PO SCH (06:27)
[2021-01-18] MEDS: methylPREDNISolone Sod Succ 40 MG VIAL IVP SCH ×3 (06:27→17:53)
[2021-01-18] MEDS: Mometasone 200 MCG/Formoterol 5 MCG 120 PUFF INHALER INH SCH ×2 (07:42→18:07)
[2021-01-18 07:53] LABS: Actual Bicarbonate (HCO3a) 28.1 mEq/L (22-28); Base Excess (BEa) 2.7 mEq/L (-2.0 to +3.0); CO2 Tension 46.7 mmHg (35.0-45.0); Calcium, Ionized (arterial) 1.36 mmol/L (1.12-1.30); Carboxyhemoglobin (COHb) 0.6 gm% (0.0-3.0); Hemoglobin (Hb) 12.2 g/dL (12.0-16.0); O2 Tension (PaO2), arterial 88.9 mmHg (80.0-100.0); Potassium - ABG Lab 3.57 mmol/L (3.70-5.30); Puncture Site LRA
[2021-01-18 07:54] LABS: ALV-art Gradient 137.925 mmHg (0-20)
[2021-01-18] MEDS: Enoxaparin Sodium 40 MG/0.4 ML SYRINGE SC SCH (09:16)
[2021-01-18] MEDS: Pantoprazole 40 MG VIAL IVP SCH (09:17)
[2021-01-18] MEDS: hydrALAZINE 20 MG/ML VIAL SLOW IVP PRN ×2 (09:17→16:07)
[2021-01-18] MEDS: NPH, Human Insulin Isophane 300 UNIT/3 ML VIAL SC SCH ×2 (09:27→21:54)
[2021-01-18] MEDS: Cholecalciferol 1,000 UNITS (25 MCG) TAB PO SCH (10:45)
[2021-01-18] MEDS: Amlodipine 5 MG TAB PO SCH (10:45)
[2021-01-18] MEDS: Folic Acid 1 MG TAB PO SCH (10:45)
[2021-01-18] MEDS: Sodium Chloride 0.65% Nasal 44 ML BOT EA NARE SCH ×3 (10:46→21:54)
[2021-01-18] MEDS: Micafungin 100 MG in Sodium Chloride 0.9% 100 ML IVPB SCH (12:10)
[2021-01-18] MEDS: Labetalol HCl 100 MG/20 ML VIAL SLOW IVP PRN (14:58)
[2021-01-18] MEDS: Dextrose 5 %-0.45 % NaCl 1,000 ML IV SCH (22:28)
[2021-01-19] MEDS: methylPREDNISolone Sod Succ 40 MG VIAL IVP SCH ×3 (00:23→20:01)
[2021-01-19] MEDS: Levothyroxine Sodium 100 MCG TAB PO SCH (05:27)
[2021-01-19 06:10] LABS: Anion Gap 11 mmol/L (10-20); BUN (Urea Nitrogen) 63 mg/dL (9.8-20.1); Calc. Creatinine Clearance 169 mL/min (70-130); Calcium 9.8 mg/dL (7.8-10.44); Carbon Dioxide 27 mmol/L (22-29); Chloride 113 mmol/L (98-107); Glucose 118 mg/dL (70-105); Potassium 3.8 mmol/L (3.5-5.1); Sodium 147 mmol/L (136-145)
[2021-01-19 06:32] LABS: Hemoglobin 12.3 g/dL (12.0-16.0); Mean Corpuscular HGB CONC 30.7 g/dL (32.0-36.0); Mean Corpuscular Hemoglobin 28.2 pg (27.0-31.0); Mean Platelet Volume 8.8 fL (7.4-10.4); Platelet Count 338 thou/uL (130-400); RBC Distribution Width 15.5 % (11.5-14.5); Red Blood Cell (RBC) Count 4.37 mill/uL (4.20-5.40); White Blood Cell (WBC) Count 19.1 thou/uL (4.8-10.8)
[2021-01-19] MEDS: Mometasone 200 MCG/Formoterol 5 MCG 120 PUFF INHALER INH SCH ×2 (07:02→17:51)
[2021-01-19 07:44] LABS: Band 7 % (5-11); Lymphocytes 4 % (21-51); MDiff Complete? YES; Monocytes 9 % (0-10); Neutrophil 79 % (42-75); Platelet Morphology Comment Appears Adequate; RBC Morphology Normal; Reactive Lymphocytes 1 % (0-10)
[2021-01-19] MEDS: Enoxaparin Sodium 40 MG/0.4 ML SYRINGE SC SCH (09:11)
[2021-01-19] MEDS: Pantoprazole 40 MG VIAL IVP SCH (09:12)
[2021-01-19] MEDS: NPH, Human Insulin Isophane 300 UNIT/3 ML VIAL SC SCH ×2 (09:13→21:55)
[2021-01-19] MEDS: Folic Acid 1 MG TAB PO SCH (09:14)
[2021-01-19] MEDS: Amlodipine 5 MG TAB PO SCH (09:14)
[2021-01-19] MEDS: Cholecalciferol 1,000 UNITS (25 MCG) TAB PO SCH (09:14)
[2021-01-19] MEDS: Sodium Chloride 0.65% Nasal 44 ML BOT EA NARE SCH ×3 (09:15→20:01)
[2021-01-19] MEDS: Micafungin 100 MG in Sodium Chloride 0.9% 100 ML IVPB SCH (11:56)
[2021-01-19] MEDS: Insulin Regular 300 UNITS/3 ML VIAL SC PRN (13:02)
[2021-01-19] MEDS: Dextrose 5 %-0.45 % NaCl 1,000 ML IV SCH ×2 (19:40→21:58)
[2021-01-19] MEDS: Melatonin 3 MG TAB PO SCH (20:00)
[2021-01-19 23:12] LABS: SARS-CoV-2 PCR by NAA Not Detected (NotDetected)
[2021-01-20] MEDS: Insulin Regular 300 UNITS/3 ML VIAL SC PRN ×3 (03:48→16:44)
[2021-01-20 04:40] LABS: Anion Gap 13 mmol/L (10-20); BUN (Urea Nitrogen) 55 mg/dL (9.8-20.1); Calc. Creatinine Clearance 153 mL/min (70-130); Carbon Dioxide 25 mmol/L (22-29); Chloride 112 mmol/L (98-107); Glucose 176 mg/dL (70-105); Potassium 3.8 mmol/L (3.5-5.1); Sodium 146 mmol/L (136-145)
[2021-01-20] MEDS: Levothyroxine Sodium 100 MCG TAB PO SCH (06:01)
[2021-01-20 06:08] LABS: Band 5 % (5-11); Hemoglobin 11.9 g/dL (12.0-16.0); Lymphocytes 21 % (21-51); MDiff Complete? YES; Mean Corpuscular HGB CONC 31.9 g/dL (32.0-36.0); Mean Corpuscular Hemoglobin 29.1 pg (27.0-31.0); Mean Corpuscular Volume 91.5 fL (78.0-98.0); Mean Platelet Volume 8.7 fL (7.4-10.4); Monocytes 8 % (0-10); Neutrophil 66 % (42-75); Platelet Count 333 thou/uL (130-400); RBC Distribution Width 15.5 % (11.5-14.5); Red Blood Cell (RBC) Count 4.09 mill/uL (4.20-5.40)
[2021-01-20] MEDS: Labetalol HCl 100 MG/20 ML VIAL SLOW IVP PRN ×2 (06:34→15:08)
[2021-01-20] MEDS: Mometasone 200 MCG/Formoterol 5 MCG 120 PUFF INHALER INH SCH ×2 (06:48→17:57)
[2021-01-20] MEDS: NPH, Human Insulin Isophane 300 UNIT/3 ML VIAL SC SCH ×2 (09:00→22:08)
[2021-01-20] MEDS: Cholecalciferol 1,000 UNITS (25 MCG) TAB PO SCH (10:06)
[2021-01-20] MEDS: Folic Acid 1 MG TAB PO SCH (10:06)
[2021-01-20] MEDS: Amlodipine 5 MG TAB PO SCH (10:06)
[2021-01-20] MEDS: Enoxaparin Sodium 40 MG/0.4 ML SYRINGE SC SCH (10:07)
[2021-01-20] MEDS: Pantoprazole 40 MG VIAL IVP SCH (10:08)
[2021-01-20] MEDS: methylPREDNISolone Sod Succ 40 MG VIAL IVP SCH ×2 (10:08→22:05)
[2021-01-20] MEDS: Sodium Chloride 0.65% Nasal 44 ML BOT EA NARE SCH ×3 (10:09→22:04)
[2021-01-20] MEDS: Micafungin 100 MG in Sodium Chloride 0.9% 100 ML IVPB SCH (11:36)
[2021-01-20] MEDS: Dextrose 5 %-0.45 % NaCl 1,000 ML IV SCH ×2 (20:06→23:30)
[2021-01-20] MEDS: Melatonin 3 MG TAB PO SCH (22:04)
[2021-01-21] MEDS: Levothyroxine Sodium 100 MCG TAB PO SCH (05:19)
[2021-01-21] MEDS: Acetaminophen 325 MG TAB PO PRN (05:23)
[2021-01-21 05:34] LABS: Hemoglobin 11.7 g/dL (12.0-16.0); Mean Corpuscular HGB CONC 31.9 g/dL (32.0-36.0); Mean Corpuscular Hemoglobin 29.2 pg (27.0-31.0); Mean Corpuscular Volume 91.5 fL (78.0-98.0); Mean Platelet Volume 9.1 fL (7.4-10.4); Platelet Count 301 thou/uL (130-400); RBC Distribution Width 15.3 % (11.5-14.5); Red Blood Cell (RBC) Count 4.02 mill/uL (4.20-5.40); White Blood Cell (WBC) Count 15.9 thou/uL (4.8-10.8)
[2021-01-21 05:49] LABS: Anion Gap 12 mmol/L (10-20); BUN (Urea Nitrogen) 41 mg/dL (9.8-20.1); Calc. Creatinine Clearance 155 mL/min (70-130); Calcium 8.6 mg/dL (7.8-10.44); Carbon Dioxide 24 mmol/L (22-29); Chloride 111 mmol/L (98-107); Glucose 271 mg/dL (70-105); Sodium 143 mmol/L (136-145)
[2021-01-21 05:59] LABS: Band 2 % (5-11); Lymphocytes 6 % (21-51); MDiff Complete? YES; Monocytes 8 % (0-10); Neutrophil 84 % (42-75)
[2021-01-21] MEDS: Insulin Regular 300 UNITS/3 ML VIAL SC PRN ×3 (06:25→18:07)
[2021-01-21] MEDS: Cholecalciferol 1,000 UNITS (25 MCG) TAB PO SCH (09:01)
[2021-01-21] MEDS: Amlodipine 5 MG TAB PO SCH (09:01)
[2021-01-21] MEDS: Sodium Chloride 0.65% Nasal 44 ML BOT EA NARE SCH ×4 (09:02→20:33)
[2021-01-21] MEDS: methylPREDNISolone Sod Succ 40 MG VIAL IVP SCH ×2 (09:02→20:31)
[2021-01-21] MEDS: Folic Acid 1 MG TAB PO SCH (09:02)
[2021-01-21] MEDS: Pantoprazole 40 MG VIAL IVP SCH (09:04)
[2021-01-21] MEDS: Enoxaparin Sodium 40 MG/0.4 ML SYRINGE SC SCH (09:06)
[2021-01-21] MEDS: NPH, Human Insulin Isophane 300 UNIT/3 ML VIAL SC SCH ×2 (09:07→20:40)
[2021-01-21] MEDS: Mometasone 200 MCG/Formoterol 5 MCG 120 PUFF INHALER INH SCH ×2 (10:50→18:53)
[2021-01-21] MEDS: Dextrose 5 %-0.45 % NaCl 1,000 ML IV SCH (11:42)
[2021-01-21] MEDS ORDERED: DULoxetine 60 MG CAP PO SCH (14:15)
[2021-01-21] MEDS: hydrALAZINE 20 MG/ML VIAL SLOW IVP PRN (17:54)
[2021-01-21] MEDS: Melatonin 3 MG TAB PO SCH (20:28)
[2021-01-22] MEDS: Levothyroxine Sodium 100 MCG TAB PO SCH (05:20)
[2021-01-22] MEDS: Dextrose 5 %-0.45 % NaCl 1,000 ML IV SCH (05:24)
[2021-01-22] MEDS: hydrALAZINE 20 MG/ML VIAL SLOW IVP PRN ×2 (05:44→12:00)
[2021-01-22 07:26] LABS: Anion Gap 12 mmol/L (10-20); BUN (Urea Nitrogen) 41 mg/dL (9.8-20.1); Calc. Creatinine Clearance 164 mL/min (70-130); Calcium 8.8 mg/dL (7.8-10.44); Carbon Dioxide 26 mmol/L (22-29); Chloride 111 mmol/L (98-107); Glucose 187 mg/dL (70-105); Potassium 3.9 mmol/L (3.5-5.1); Sodium 145 mmol/L (136-145)
[2021-01-22] MEDS: Mometasone 200 MCG/Formoterol 5 MCG 120 PUFF INHALER INH SCH ×2 (07:38→18:27)
[2021-01-22 07:43] LABS: Hemoglobin 12.1 g/dL (12.0-16.0); Mean Corpuscular Hemoglobin 28.7 pg (27.0-31.0); Mean Corpuscular Volume 92.5 fL (78.0-98.0); Mean Platelet Volume 8.7 fL (7.4-10.4); Platelet Count 318 thou/uL (130-400); RBC Distribution Width 15.5 % (11.5-14.5); Red Blood Cell (RBC) Count 4.22 mill/uL (4.20-5.40); White Blood Cell (WBC) Count 19.8 thou/uL (4.8-10.8)
[2021-01-22 07:44] LABS: Band 3 % (5-11); Eosinophils 1 % (0-10); Lymphocytes 23 % (21-51); MDiff Complete? YES; Monocytes 5 % (0-10); Neutrophil 66 % (42-75); Reactive Lymphocytes 2 % (0-10)
[2021-01-22] MEDS ORDERED: DULoxetine 60 MG CAP PO SCH (09:00)
[2021-01-22] MEDS ORDERED: Magnesium 2 GM/50 ML 2 GM in Premix Bag 1 BAG IVPB SCH (09:00)
[2021-01-22] MEDS: Cholecalciferol 1,000 UNITS (25 MCG) TAB PO SCH (09:53)
[2021-01-22] MEDS: Sodium Chloride 0.65% Nasal 44 ML BOT EA NARE SCH ×3 (09:53→20:04)
[2021-01-22] MEDS: Enoxaparin Sodium 40 MG/0.4 ML SYRINGE SC SCH (09:53)
[2021-01-22] MEDS: Folic Acid 1 MG TAB PO SCH (09:54)
[2021-01-22] MEDS: Amlodipine 5 MG TAB PO SCH ×2 (09:54→20:03)
[2021-01-22] MEDS: NPH, Human Insulin Isophane 300 UNIT/3 ML VIAL SC SCH ×2 (09:54→20:58)
[2021-01-22] MEDS: methylPREDNISolone Sod Succ 40 MG VIAL IVP SCH (09:54)
[2021-01-22] MEDS ORDERED: Losartan 25 MG TAB PO SCH (16:15)
[2021-01-22] MEDS: Labetalol HCl 100 MG/20 ML VIAL SLOW IVP PRN (17:42)
[2021-01-22] MEDS: DULoxetine 30 MG CAP PO SCH (20:03)
[2021-01-22] MEDS: Melatonin 3 MG TAB PO SCH (20:03)
[2021-01-22] MEDS ORDERED: Gabapentin 100 MG CAP PO SCH (21:00)
[2021-01-23] MEDS: Dextrose 5 %-0.45 % NaCl 1,000 ML IV SCH ×2 (02:19→23:00)
[2021-01-23] MEDS: Levothyroxine Sodium 100 MCG TAB PO SCH (05:05)
[2021-01-23 05:36] LABS: Hemoglobin 12.2 g/dL (12.0-16.0); Mean Corpuscular HGB CONC 31.6 g/dL (32.0-36.0); Mean Corpuscular Volume 91.8 fL (78.0-98.0); Mean Platelet Volume 8.8 fL (7.4-10.4); Platelet Count 311 thou/uL (130-400); RBC Distribution Width 15.7 % (11.5-14.5); Red Blood Cell (RBC) Count 4.21 mill/uL (4.20-5.40); White Blood Cell (WBC) Count 15.3 thou/uL (4.8-10.8)
[2021-01-23 05:49] LABS: Anion Gap 13 mmol/L (10-20); BUN (Urea Nitrogen) 35 mg/dL (9.8-20.1); Calc. Creatinine Clearance 181 mL/min (70-130); Calcium 8.5 mg/dL (7.8-10.44); Carbon Dioxide 24 mmol/L (22-29); Chloride 111 mmol/L (98-107); Glucose 83 mg/dL (70-105); Potassium 3.9 mmol/L (3.5-5.1); Sodium 144 mmol/L (136-145)
[2021-01-23 05:59] LABS: Band 1 % (5-11); Eosinophils 4 % (0-10); Lymphocytes 22 % (21-51); MDiff Complete? YES; Monocytes 16 % (0-10); Myelocyte 1 % (0-0); Neutrophil 56 % (42-75)
[2021-01-23] MEDS: Mometasone 200 MCG/Formoterol 5 MCG 120 PUFF INHALER INH SCH ×2 (07:16→18:35)
[2021-01-23] MEDS: Cholecalciferol 1,000 UNITS (25 MCG) TAB PO SCH (08:58)
[2021-01-23] MEDS: predniSONE 20 MG TAB PO SCH (08:59)
[2021-01-23] MEDS: Folic Acid 1 MG TAB PO SCH (08:59)
[2021-01-23] MEDS: Amlodipine 5 MG TAB PO SCH ×2 (08:59→21:18)
[2021-01-23] MEDS: Clopidogrel Bisulfate 75 MG TAB PO SCH (08:59)
[2021-01-23] MEDS: Sodium Chloride 0.65% Nasal 44 ML BOT EA NARE SCH ×3 (09:00→21:19)
[2021-01-23] MEDS ORDERED: Losartan 25 MG TAB PO SCH (09:00)
[2021-01-23] MEDS: Enoxaparin Sodium 40 MG/0.4 ML SYRINGE SC SCH (09:00)
[2021-01-23] MEDS: NPH, Human Insulin Isophane 300 UNIT/3 ML VIAL SC SCH ×3 (10:52→21:19)
[2021-01-23] MEDS: hydrALAZINE 20 MG/ML VIAL SLOW IVP PRN (15:05)
[2021-01-23] MEDS: Losartan 25 MG TAB PO SCH (21:10)
[2021-01-23] MEDS: DULoxetine 30 MG CAP PO SCH (21:18)
[2021-01-23] MEDS: Melatonin 3 MG TAB PO SCH (21:18)
[2021-01-24] MEDS: hydrALAZINE 20 MG/ML VIAL SLOW IVP PRN (03:33)
[2021-01-24] MEDS: Levothyroxine Sodium 100 MCG TAB PO SCH (06:09)
[2021-01-24] MEDS: Mometasone 200 MCG/Formoterol 5 MCG 120 PUFF INHALER INH SCH ×2 (07:24→18:48)
[2021-01-24] MEDS: Sodium Chloride 0.65% Nasal 44 ML BOT EA NARE SCH ×3 (08:31→20:28)
[2021-01-24] MEDS: Clopidogrel Bisulfate 75 MG TAB PO SCH (08:32)
[2021-01-24] MEDS: Losartan 25 MG TAB PO SCH ×2 (08:32→20:27)
[2021-01-24] MEDS: Amlodipine 5 MG TAB PO SCH ×2 (08:32→20:28)
[2021-01-24] MEDS: predniSONE 20 MG TAB PO SCH (08:32)
[2021-01-24] MEDS: Folic Acid 1 MG TAB PO SCH (08:32)
[2021-01-24] MEDS: NPH, Human Insulin Isophane 300 UNIT/3 ML VIAL SC SCH (08:34)
[2021-01-24] MEDS: Enoxaparin Sodium 40 MG/0.4 ML SYRINGE SC SCH (08:34)
[2021-01-24] MEDS: Cholecalciferol 1,000 UNITS (25 MCG) TAB PO SCH (08:40)
[2021-01-24] MEDS: Insulin Regular 300 UNITS/3 ML VIAL SC PRN (13:43)
[2021-01-24] MEDS: Dextrose 5 %-0.45 % NaCl 1,000 ML IV SCH ×2 (17:57→20:27)
[2021-01-24] MEDS: DULoxetine 30 MG CAP PO SCH (20:27)
[2021-01-24] MEDS: Melatonin 3 MG TAB PO SCH (20:28)
[2021-01-25 05:21] LABS: Hemoglobin 11.4 g/dL (12.0-16.0); Mean Corpuscular HGB CONC 31.7 g/dL (32.0-36.0); Mean Corpuscular Hemoglobin 29.3 pg (27.0-31.0); Mean Corpuscular Volume 92.7 fL (78.0-98.0); Mean Platelet Volume 8.1 fL (7.4-10.4); Platelet Count 314 thou/uL (130-400); RBC Distribution Width 15.7 % (11.5-14.5); Red Blood Cell (RBC) Count 3.88 mill/uL (4.20-5.40)
[2021-01-25 05:27] LABS: Anion Gap 10 mmol/L (10-20); BUN (Urea Nitrogen) 18 mg/dL (9.8-20.1); Calc. Creatinine Clearance 178 mL/min (70-130); Calcium 8.3 mg/dL (7.8-10.44); Carbon Dioxide 26 mmol/L (22-29); Chloride 110 mmol/L (98-107); Glucose 143 mg/dL (70-105); Sodium 143 mmol/L (136-145)
[2021-01-25 05:45] LABS: Potassium 2.9 mmol/L (3.5-5.1)
[2021-01-25 05:57] LABS: Band 3 % (5-11); Eosinophils 1 % (0-10); Lymphocytes 27 % (21-51); MDiff Complete? YES; Monocytes 7 % (0-10); Myelocyte 1 % (0-0); Neutrophil 60 % (42-75); Reactive Lymphocytes 1 % (0-10)
[2021-01-25] MEDS: Levothyroxine Sodium 100 MCG TAB PO SCH (06:13)
[2021-01-25] MEDS: Potassium Chloride 20 MEQ TAB PO SCH ×2 (06:30→09:23)
[2021-01-25] MEDS: Mometasone 200 MCG/Formoterol 5 MCG 120 PUFF INHALER INH SCH ×2 (07:28→18:32)
[2021-01-25] MEDS ORDERED: Nortriptyline 10 MG CAP ONE (08:53)
[2021-01-25 09:14] LABS: Magnesium 1.8 mg/dL (1.6-2.6); Phosphorus 3.6 mg/dL (2.3-4.7)
[2021-01-25] MEDS: Cholecalciferol 1,000 UNITS (25 MCG) TAB PO SCH (09:22)
[2021-01-25] MEDS: Losartan 25 MG TAB PO SCH ×2 (09:23→20:07)
[2021-01-25] MEDS: predniSONE 20 MG TAB PO SCH (09:23)
[2021-01-25] MEDS: Folic Acid 1 MG TAB PO SCH (09:24)
[2021-01-25] MEDS: Amlodipine 5 MG TAB PO SCH ×2 (09:24→20:07)
[2021-01-25] MEDS: Clopidogrel Bisulfate 75 MG TAB PO SCH (09:24)
[2021-01-25] MEDS: Lantus 1000 UNITS/10 ML VIAL SC SCH (09:25)
[2021-01-25] MEDS: Enoxaparin Sodium 40 MG/0.4 ML SYRINGE SC SCH (09:25)
[2021-01-25] MEDS: Sodium Chloride 0.65% Nasal 44 ML BOT EA NARE SCH ×3 (09:26→20:07)
[2021-01-25] MEDS ORDERED: Magnesium 2 GM/50 ML 2 GM in Premix Bag 1 BAG IVPB SCH (10:00)
[2021-01-25] MEDS: Insulin Regular 300 UNITS/3 ML VIAL SC PRN (17:43)
[2021-01-25] MEDS: Dextrose 5 %-0.45 % NaCl 1,000 ML IV SCH (20:06)
[2021-01-25] MEDS: Melatonin 3 MG TAB PO SCH (20:07)
[2021-01-25] MEDS: DULoxetine 30 MG CAP PO SCH (20:07)
[2021-01-25] MEDS: Saccharomyces boulardii 250 MG CAP PO SCH (20:07)
[2021-01-26 04:56] LABS: Hemoglobin 11.4 g/dL (12.0-16.0); Mean Corpuscular HGB CONC 30.6 g/dL (32.0-36.0); Mean Corpuscular Hemoglobin 28.8 pg (27.0-31.0); Mean Corpuscular Volume 93.9 fL (78.0-98.0); Mean Platelet Volume 7.8 fL (7.4-10.4); Platelet Count 336 thou/uL (130-400); RBC Distribution Width 15.9 % (11.5-14.5); Red Blood Cell (RBC) Count 3.98 mill/uL (4.20-5.40); White Blood Cell (WBC) Count 13.6 thou/uL (4.8-10.8)
[2021-01-26 05:10] LABS: Anion Gap 13 mmol/L (10-20); BUN (Urea Nitrogen) 16 mg/dL (9.8-20.1); Calc. Creatinine Clearance 174 mL/min (70-130); Calcium 8.6 mg/dL (7.8-10.44); Carbon Dioxide 23 mmol/L (22-29); Chloride 111 mmol/L (98-107); Glucose 131 mg/dL (70-105); Magnesium 1.9 mg/dL (1.6-2.6); Potassium 3.7 mmol/L (3.5-5.1); Sodium 143 mmol/L (136-145)
[2021-01-26 05:33] LABS: Band 2 % (5-11); Eosinophils 1 % (0-10); Lymphocytes 17 % (21-51); MDiff Complete? YES; Monocytes 6 % (0-10); Neutrophil 74 % (42-75)
[2021-01-26] MEDS: Levothyroxine Sodium 100 MCG TAB PO SCH (06:18)
[2021-01-26] MEDS ORDERED: Magnesium 2 GM/50 ML 2 GM in Premix Bag 1 BAG IVPB SCH (07:00)
[2021-01-26] MEDS: Mometasone 200 MCG/Formoterol 5 MCG 120 PUFF INHALER INH SCH ×2 (07:21→18:36)
[2021-01-26] MEDS: predniSONE 20 MG TAB PO SCH (08:52)
[2021-01-26] MEDS: Losartan 25 MG TAB PO SCH ×2 (08:53→20:50)
[2021-01-26] MEDS: Folic Acid 1 MG TAB PO SCH (08:53)
[2021-01-26] MEDS: Enoxaparin Sodium 40 MG/0.4 ML SYRINGE SC SCH (08:53)
[2021-01-26] MEDS: Cholecalciferol 1,000 UNITS (25 MCG) TAB PO SCH (08:53)
[2021-01-26] MEDS: Clopidogrel Bisulfate 75 MG TAB PO SCH (08:53)
[2021-01-26] MEDS: Amlodipine 5 MG TAB PO SCH ×2 (08:54→20:50)
[2021-01-26] MEDS: Sodium Chloride 0.65% Nasal 44 ML BOT EA NARE SCH ×3 (09:11→20:55)
[2021-01-26] MEDS: Lantus 1000 UNITS/10 ML VIAL SC SCH (11:44)
[2021-01-26] MEDS: Acetaminophen 325 MG TAB PO PRN (11:51)
[2021-01-26] MEDS ORDERED: Ondansetron ODT 4 MG TAB PO PRN (14:37)
[2021-01-26] MEDS ORDERED: Ondansetron PF 4 MG/2 ML Vial IVP PRN (14:37)
[2021-01-26] MEDS: Insulin Regular 300 UNITS/3 ML VIAL SC PRN (18:25)
[2021-01-26] MEDS: Saccharomyces boulardii 250 MG CAP PO SCH (20:49)
[2021-01-26] MEDS: Dextrose 5 %-0.45 % NaCl 1,000 ML IV SCH (20:49)
[2021-01-26] MEDS: Melatonin 3 MG TAB PO SCH (20:50)
[2021-01-26] MEDS: DULoxetine 30 MG CAP PO SCH (20:50)
[2021-01-26] MEDS ORDERED: Lidocaine 2% Viscous Solution 10 ML, Aluminum & Magnesium Hydroxide 30 ML SSW SCH (23:59)
[2021-01-27] MEDS: Levothyroxine Sodium 100 MCG TAB PO SCH (05:05)
[2021-01-27] MEDS ORDERED: Lidocaine 2% Viscous Solution 10 ML, Aluminum & Magnesium Hydroxide 30 ML SSW SCH (05:30)
[2021-01-27 05:32] LABS: Anion Gap 13 mmol/L (10-20); BUN (Urea Nitrogen) 17 mg/dL (9.8-20.1); Calc. Creatinine Clearance 144 mL/min (70-130); Calcium 8.9 mg/dL (7.8-10.44); Carbon Dioxide 24 mmol/L (22-29); Chloride 109 mmol/L (98-107); Glucose 153 mg/dL (70-105); Sodium 142 mmol/L (136-145)
[2021-01-27] MEDS: Mometasone 200 MCG/Formoterol 5 MCG 120 PUFF INHALER INH SCH ×2 (06:32→18:42)
[2021-01-27] MEDS ORDERED: Potassium Chloride 20 MEQ TAB PO SCH (08:00)
[2021-01-27] MEDS: Lantus 1000 UNITS/10 ML VIAL SC SCH (09:17)
[2021-01-27] MEDS: Clopidogrel Bisulfate 75 MG TAB PO SCH (09:17)
[2021-01-27] MEDS: Losartan 25 MG TAB PO SCH ×2 (09:17→21:10)
[2021-01-27] MEDS: Cholecalciferol 1,000 UNITS (25 MCG) TAB PO SCH (09:17)
[2021-01-27] MEDS: Sodium Chloride 0.65% Nasal 44 ML BOT EA NARE SCH ×3 (09:17→21:11)
[2021-01-27] MEDS: predniSONE 20 MG TAB PO SCH (09:17)
[2021-01-27] MEDS: Amlodipine 5 MG TAB PO SCH ×2 (09:17→21:10)
[2021-01-27] MEDS: Enoxaparin Sodium 40 MG/0.4 ML SYRINGE SC SCH (09:17)
[2021-01-27] MEDS: Folic Acid 1 MG TAB PO SCH (09:17)
[2021-01-27 12:19] LABS: SARS-CoV-2 PCR by NAA Not Detected (NotDetected)
[2021-01-27] MEDS: hydrALAZINE 20 MG/ML VIAL SLOW IVP PRN (13:34)
[2021-01-27] MEDS: Simethicone Chewable 80 MG TAB PO SCH ×3 (13:36→21:09)
[2021-01-27] MEDS ORDERED: Gabapentin 100 MG CAP PO SCH (14:45)
[2021-01-27] MEDS ORDERED: Acetaminophen 325 MG TAB PO PRN (14:46)
[2021-01-27] MEDS ORDERED: Labetalol HCl 100 MG/20 ML VIAL SLOW IVP PRN (14:47)
[2021-01-27] MEDS: Acetaminophen 325 MG TAB PO SCH ×2 (15:23→21:11)
[2021-01-27] MEDS: Insulin Regular 300 UNITS/3 ML VIAL SC PRN (18:00)
[2021-01-27] MEDS: Dextrose 5 %-0.45 % NaCl 1,000 ML IV SCH (18:02)
[2021-01-27] MEDS ORDERED: Lantus 1000 UNITS/10 ML VIAL SC SCH (18:44)
[2021-01-27] MEDS ORDERED: Dextrose 5% in Water 1,000 ML IV PRN (21:09)
[2021-01-27] MEDS: Saccharomyces boulardii 250 MG CAP PO SCH (21:09)
[2021-01-27] MEDS: DULoxetine 30 MG CAP PO SCH (21:09)
[2021-01-27] MEDS ORDERED: Dextrose 50% Abboject 50 ML SYRINGE SLOW IVP PRN (21:09)
[2021-01-27] MEDS ORDERED: HumaLOG 300 UNITS/3 ML VIAL SC PRN (21:09)
[2021-01-27] MEDS: Melatonin 3 MG TAB PO SCH (21:09)
[2021-01-28] MEDS: Levothyroxine Sodium 100 MCG TAB PO SCH (05:37)
[2021-01-28] MEDS: Mometasone 200 MCG/Formoterol 5 MCG 120 PUFF INHALER INH SCH ×2 (07:17→19:01)
[2021-01-28] MEDS ORDERED: NPH, Human Insulin Isophane 300 UNIT/3 ML VIAL SC SCH (10:00)
[2021-01-28] MEDS: Losartan 25 MG TAB PO SCH ×2 (10:44→21:06)
[2021-01-28] MEDS: Cholecalciferol 1,000 UNITS (25 MCG) TAB PO SCH (10:45)
[2021-01-28] MEDS: Simethicone Chewable 80 MG TAB PO SCH ×4 (10:45→21:16)
[2021-01-28] MEDS: Gabapentin 100 MG CAP PO SCH (10:45)
[2021-01-28] MEDS: Amlodipine 5 MG TAB PO SCH ×2 (10:45→21:06)
[2021-01-28] MEDS: predniSONE 20 MG TAB PO SCH (10:46)
[2021-01-28] MEDS: Acetaminophen 325 MG TAB PO SCH ×3 (10:46→21:04)
[2021-01-28] MEDS: Clopidogrel Bisulfate 75 MG TAB PO SCH (10:47)
[2021-01-28] MEDS: Enoxaparin Sodium 40 MG/0.4 ML SYRINGE SC SCH (10:47)
[2021-01-28] MEDS: Folic Acid 1 MG TAB PO SCH (10:47)
[2021-01-28] MEDS: Sodium Chloride 0.65% Nasal 44 ML BOT EA NARE SCH ×3 (10:48→21:07)
[2021-01-28] MEDS ORDERED: Insulin Regular 300 UNITS/3 ML VIAL SC PRN (10:49)
[2021-01-28] MEDS: Insulin Regular 300 UNITS/3 ML VIAL SC PRN (18:37)
[2021-01-28] MEDS: DULoxetine 30 MG CAP PO SCH (21:06)
[2021-01-28] MEDS: Saccharomyces boulardii 250 MG CAP PO SCH (21:07)
[2021-01-28] MEDS: Melatonin 3 MG TAB PO SCH (21:07)
[2021-01-29] MEDS: Mometasone 200 MCG/Formoterol 5 MCG 120 PUFF INHALER INH SCH ×2 (06:59→19:54)
[2021-01-29] MEDS: Levothyroxine Sodium 100 MCG TAB PO SCH (07:14)
[2021-01-29] MEDS: predniSONE 20 MG TAB PO SCH (08:11)
[2021-01-29] MEDS: Acetaminophen 325 MG TAB PO SCH ×3 (08:11→21:08)
[2021-01-29] MEDS: Losartan 25 MG TAB PO SCH ×2 (08:12→21:07)
[2021-01-29] MEDS: Amlodipine 5 MG TAB PO SCH ×2 (08:12→21:07)
[2021-01-29] MEDS: Clopidogrel Bisulfate 75 MG TAB PO SCH (08:13)
[2021-01-29] MEDS: Cholecalciferol 1,000 UNITS (25 MCG) TAB PO SCH (08:13)
[2021-01-29] MEDS: Simethicone Chewable 80 MG TAB PO SCH ×4 (08:13→21:06)
[2021-01-29] MEDS: Sodium Chloride 0.65% Nasal 44 ML BOT EA NARE SCH ×3 (08:14→21:09)
[2021-01-29] MEDS: Folic Acid 1 MG TAB PO SCH (08:15)
[2021-01-29] MEDS: Gabapentin 100 MG CAP PO SCH (08:15)
[2021-01-29] MEDS: Enoxaparin Sodium 40 MG/0.4 ML SYRINGE SC SCH (08:15)
[2021-01-29] MEDS ORDERED: NPH, Human Insulin Isophane 300 UNIT/3 ML VIAL SC SCH (09:00)
[2021-01-29] MEDS: Citrucel 500 MG TAB PO SCH (21:06)
[2021-01-29] MEDS: Melatonin 3 MG TAB PO SCH (21:07)
[2021-01-29] MEDS: DULoxetine 30 MG CAP PO SCH (21:07)
[2021-01-29] MEDS: Saccharomyces boulardii 250 MG CAP PO SCH (21:07)
[2021-01-30] MEDS: Levothyroxine Sodium 100 MCG TAB PO SCH (05:24)
[2021-01-30 07:03] LABS: #Basophils 0.1 thou/uL (0.0-0.2); #Eosinphils 0.3 thou/uL (0.0-0.7); #Monocytes 0.8 thou/uL (0.11-0.59); #Neutrophils 5.4 thou/uL (1.40-6.50); %Basophils 1.2 % (0.0-1.0); %Eosinophils 3.5 % (0.0-10.0); %Lymphocytes 30.7 % (21.0-51.0); %Monocytes 8.7 % (0.0-10.0); Mean Corpuscular HGB CONC 32.3 g/dL (32.0-36.0); Mean Corpuscular Hemoglobin 29.8 pg (27.0-31.0); Mean Corpuscular Volume 92.5 fL (78.0-98.0); Mean Platelet Volume 7.4 fL (7.4-10.4); Platelet Count 299 thou/uL (130-400); RBC Distribution Width 15.8 % (11.5-14.5); Red Blood Cell (RBC) Count 3.68 mill/uL (4.20-5.40); White Blood Cell (WBC) Count 9.6 thou/uL (4.8-10.8)
[2021-01-30] MEDS: Mometasone 200 MCG/Formoterol 5 MCG 120 PUFF INHALER INH SCH ×2 (07:25→18:07)
[2021-01-30 07:27] LABS: Anion Gap 11 mmol/L (10-20); BUN (Urea Nitrogen) 18 mg/dL (9.8-20.1); Calc. Creatinine Clearance 165 mL/min (70-130); Calcium 8.6 mg/dL (7.8-10.44); Carbon Dioxide 27 mmol/L (22-29); Chloride 109 mmol/L (98-107); Glucose 89 mg/dL (70-105); Magnesium 1.7 mg/dL (1.6-2.6); Potassium 3.7 mmol/L (3.5-5.1); Sodium 143 mmol/L (136-145)
[2021-01-30] MEDS: Losartan 25 MG TAB PO SCH ×2 (08:57→21:48)
[2021-01-30] MEDS: predniSONE 20 MG TAB PO SCH (08:57)
[2021-01-30] MEDS: Folic Acid 1 MG TAB PO SCH (08:57)
[2021-01-30] MEDS: Cholecalciferol 1,000 UNITS (25 MCG) TAB PO SCH (08:58)
[2021-01-30] MEDS: Amlodipine 5 MG TAB PO SCH ×2 (08:58→21:47)
[2021-01-30] MEDS: Clopidogrel Bisulfate 75 MG TAB PO SCH (08:58)
[2021-01-30] MEDS: Gabapentin 100 MG CAP PO SCH (08:59)
[2021-01-30] MEDS: Enoxaparin Sodium 40 MG/0.4 ML SYRINGE SC SCH (08:59)
[2021-01-30] MEDS: NPH, Human Insulin Isophane 300 UNIT/3 ML VIAL SC SCH (09:00)
[2021-01-30] MEDS: Citrucel 500 MG TAB PO SCH ×2 (09:00→21:48)
[2021-01-30] MEDS: Acetaminophen 325 MG TAB PO SCH ×4 (09:03→21:48)
[2021-01-30] MEDS: Sodium Chloride 0.65% Nasal 44 ML BOT EA NARE SCH ×3 (09:04→21:49)
[2021-01-30] MEDS: Simethicone Chewable 80 MG TAB PO SCH ×4 (09:16→21:47)
[2021-01-30] MEDS ORDERED: Magnesium 2 GM/50 ML 2 GM in Premix Bag 1 BAG IVPB SCH (09:30)
[2021-01-30 13:21] VITALS: BMI 45.3
[2021-01-30] MEDS: Insulin Regular 300 UNITS/3 ML VIAL SC PRN (17:20)
[2021-01-30] MEDS: Saccharomyces boulardii 250 MG CAP PO SCH (21:47)
[2021-01-30] MEDS: DULoxetine 30 MG CAP PO SCH (21:48)
[2021-01-30] MEDS: Melatonin 3 MG TAB PO SCH (21:49)
[2021-01-31] MEDS: Levothyroxine Sodium 100 MCG TAB PO SCH (05:57)
[2021-01-31 07:51] LABS: Anion Gap 13 mmol/L (10-20); BUN (Urea Nitrogen) 13 mg/dL (9.8-20.1); Calc. Creatinine Clearance 156 mL/min (70-130); Calcium 8.3 mg/dL (7.8-10.44); Carbon Dioxide 27 mmol/L (22-29); Chloride 107 mmol/L (98-107); Glucose 106 mg/dL (70-105); Magnesium 1.8 mg/dL (1.6-2.6); Potassium 3.6 mmol/L (3.5-5.1); Sodium 143 mmol/L (136-145)
[2021-01-31 07:58] LABS: #Basophils 0.1 thou/uL (0.0-0.2); #Eosinphils 0.3 thou/uL (0.0-0.7); #Lymphocytes 2.8 thou/uL (1.20-3.40); #Monocytes 0.8 thou/uL (0.11-0.59); #Neutrophils 5.1 thou/uL (1.40-6.50); %Basophils 0.9 % (0.0-1.0); %Eosinophils 3.8 % (0.0-10.0); %Lymphocytes 30.9 % (21.0-51.0); %Monocytes 8.2 % (0.0-10.0); %Neutrophils 56.2 % (42.0-75.0); Hemoglobin 11.4 g/dL (12.0-16.0); Mean Corpuscular HGB CONC 32.5 g/dL (32.0-36.0); Mean Corpuscular Volume 92.1 fL (78.0-98.0); Mean Platelet Volume 7.6 fL (7.4-10.4); Platelet Count 275 thou/uL (130-400); RBC Distribution Width 15.8 % (11.5-14.5); White Blood Cell (WBC) Count 9.1 thou/uL (4.8-10.8)
[2021-01-31] MEDS: Mometasone 200 MCG/Formoterol 5 MCG 120 PUFF INHALER INH SCH (08:00)
[2021-01-31] MEDS: Losartan 25 MG TAB PO SCH (08:09)
[2021-01-31] MEDS: Gabapentin 100 MG CAP PO SCH (08:09)
[2021-01-31] MEDS: Amlodipine 5 MG TAB PO SCH (08:10)
[2021-01-31] MEDS: Cholecalciferol 1,000 UNITS (25 MCG) TAB PO SCH (08:10)
[2021-01-31] MEDS: Folic Acid 1 MG TAB PO SCH (08:10)
[2021-01-31] MEDS: predniSONE 20 MG TAB PO SCH (08:10)
[2021-01-31] MEDS: Clopidogrel Bisulfate 75 MG TAB PO SCH (08:11)
[2021-01-31] MEDS: Acetaminophen 325 MG TAB PO SCH ×2 (08:11→14:08)
[2021-01-31] MEDS: Simethicone Chewable 80 MG TAB PO SCH ×2 (08:11→14:09)
[2021-01-31] MEDS: Enoxaparin Sodium 40 MG/0.4 ML SYRINGE SC SCH (08:12)
[2021-01-31] MEDS: NPH, Human Insulin Isophane 300 UNIT/3 ML VIAL SC SCH (08:13)
[2021-01-31] MEDS: Sodium Chloride 0.65% Nasal 44 ML BOT EA NARE SCH ×2 (08:14→14:09)
[2021-01-31 08:21] VITALS: BP 152/78
[2021-01-31] MEDS ORDERED: Magnesium 2 GM/50 ML 2 GM in Premix Bag 1 BAG IVPB SCH (09:00)
[2021-01-31 09:08] VITALS: TEMP 98.7
[2021-01-31] MEDS: Citrucel 500 MG TAB PO SCH (09:25)
== END 2021-01-31 16:18 | DRG 870 ==
LOC: ERS 10:32 → 2NO 15:24 → CCU 01-08 12:47 → 2NO 01-21 00:23 → T4-A 01-27 11:48
PROVIDERS: ADMIT Internal Medicine; ATTEND Internal Medicine
PROC: 5A1955Z Respiratory Ventilation, Greater than 96 Consecutive Hours (ICD-10-PCS; principal; 2021-01-08)
PROC: 0BH18EZ Insertion of Endotracheal Airway into Trachea, Via Natural or Artificial Opening Endoscopic (ICD-10-PCS; 2021-01-08)
PROC: 5A0935A Assistance with Respiratory Ventilation, Less than 24 Consecutive Hours, High Flow/Velocity Cannula (ICD-10-PCS; 2021-01-08)
PROC: 0B9F8ZX Drainage of Right Lower Lung Lobe, Via Natural or Artificial Opening Endoscopic, Diagnostic (ICD-10-PCS; 2021-01-08)
PROC: 0B9D8ZX Drainage of Right Middle Lung Lobe, Via Natural or Artificial Opening Endoscopic, Diagnostic (ICD-10-PCS; 2021-01-08)
PROC: 5A09357 Assistance with Respiratory Ventilation, Less than 24 Consecutive Hours, Continuous Positive Airway Pressure (ICD-10-PCS; 2021-01-18)
PROC: 8E0ZXY6 Isolation (ICD-10-PCS; 2021-01-25)
PROC: 3E0G76Z Introduction of Nutritional Substance into Upper GI, Via Natural or Artificial Opening (ICD-10-PCS; 2021-01-30)
DX: A41.9 Sepsis, unspecified organism (principal); J15.9 Unspecified bacterial pneumonia; J96.01 Acute respiratory failure with hypoxia; B37.1 Pulmonary candidiasis; N17.9 Acute kidney failure, unspecified; D84.821 Immunodeficiency due to drugs; E87.0 Hyperosmolality and hypernatremia; F05 Delirium due to known physiological condition; G93.49 Other encephalopathy; Z68.41 Body mass index [BMI] 40.0-44.9, adult; R65.20 Severe sepsis without septic shock; Z20.822 Contact with and (suspected) exposure to COVID-19; Y95 Nosocomial condition; I10 Essential (primary) hypertension; G89.4 Chronic pain syndrome; M06.9 Rheumatoid arthritis, unspecified; M32.9 Systemic lupus erythematosus, unspecified; E66.01 Morbid (severe) obesity due to excess calories; E03.9 Hypothyroidism, unspecified; E78.5 Hyperlipidemia, unspecified; J45.909 Unspecified asthma, uncomplicated; L40.50 Arthropathic psoriasis, unspecified; F41.9 Anxiety disorder, unspecified; M79.7 Fibromyalgia; R93.89 Abnormal findings on diagnostic imaging of other specified body structures; F40.240 Claustrophobia; R13.10 Dysphagia, unspecified; T38.0X5A Adverse effect of glucocorticoids and synthetic analogues, initial encounter; G47.33 Obstructive sleep apnea (adult) (pediatric); R10.9 Unspecified abdominal pain; E11.65 Type 2 diabetes mellitus with hyperglycemia; E87.5 Hyperkalemia; E83.42 Hypomagnesemia; R19.7 Diarrhea, unspecified; Z78.1 Physical restraint status; Z88.0 Allergy status to penicillin; Z88.2 Allergy status to sulfonamides; Z88.8 Allergy status to other drugs, medicaments and biological substances; Z91.040 Latex allergy status; Z91.011 Allergy to milk products; Z79.899 Other long term (current) drug therapy; Z79.890 Hormone replacement therapy; Z79.84 Long term (current) use of oral hypoglycemic drugs; Z79.4 Long term (current) use of insulin; Z90.49 Acquired absence of other specified parts of digestive tract; Z98.890 Other specified postprocedural states; Z84.1 Family history of disorders of kidney and ureter; Z87.891 Personal history of nicotine dependence; Z90.710 Acquired absence of both cervix and uterus; Z79.52 Long term (current) use of systemic steroids; Z79.02 Long term (current) use of antithrombotics/antiplatelets
CPT/HCPCS: 36415; 36416; 36600; 71045; 71275; 74018; 80048; 80053; 80202; 81001; 82785; 82805; 83605; 83735; 83880; 84100; 84145; 84484; 85007; 85025; 85027; 85060; 86140; 86606; 87040; 87070; 87102; 87116; 87205; 87206; 87324; 87449; 87536; 87804; 87899; 89051; 93005; 93010; 94002; 94003; 94640; 94660; 96374; 96375; C9113; J0360; J0456; J0692; J0696; J1650; J1815; J1940; J2060; J2248; J2250; J2405; J2704; J2920; J2930; J3010; J3370; J3475; J3490; J7030; J7042; J7050; J7512; J7620; Q0162; Q9967; U0002; U0003; U0005

== ENCOUNTER 2021-02-14 15:46 | Outpatient (CLI) | payer MEDICARE | END 2021-02-14 15:47 | disposition home or self-care (01) | LOC: ULT 15:46 | PROVIDERS: ATTEND Internal Medicine | DX: R60.9 Edema, unspecified (principal) | CPT/HCPCS: 93970 ==

== ENCOUNTER 2021-09-05 11:31 | Outpatient (CLI) | payer MEDICARE | END 2021-09-05 11:32 | disposition home or self-care (01) | LOC: BICCT 11:31 | PROVIDERS: ATTEND Internal Medicine | DX: Z13.820 Encounter for screening for osteoporosis (principal); Z12.2 Encounter for screening for malignant neoplasm of respiratory organs; M81.0 Age-related osteoporosis without current pathological fracture; M85.851 Other specified disorders of bone density and structure, right thigh; M85.852 Other specified disorders of bone density and structure, left thigh; Z87.891 Personal history of nicotine dependence | CPT/HCPCS: 71271; 77080 ==

== ENCOUNTER 2021-11-30 13:43 | Outpatient (CLI) | payer MEDICARE | END 2021-11-30 13:44 | disposition home or self-care (01) | LOC: BICMAMMO 13:43 | PROVIDERS: ATTEND Internal Medicine | DX: Z12.31 Encounter for screening mammogram for malignant neoplasm of breast (principal); M79.621 Pain in right upper arm | CPT/HCPCS: 76999; 77063; 77066; 77067; G0279 ==

== ENCOUNTER 2021-12-05 15:14 | Outpatient (CLI) | payer MEDICARE | END 2021-12-05 15:15 | disposition home or self-care (01) | LOC: BICRAD 15:14 | PROVIDERS: ATTEND Internal Medicine | DX: M25.511 Pain in right shoulder (principal); R06.09 Other forms of dyspnea | CPT/HCPCS: 71046 ==

== ENCOUNTER 2022-03-05 13:34 | Outpatient (CLI) | payer MEDICARE | END 2022-03-05 13:35 | disposition home or self-care (01) | LOC: BICRAD 13:34 | PROVIDERS: ATTEND Internal Medicine | DX: M54.50 Low back pain, unspecified (principal); M47.816 Spondylosis without myelopathy or radiculopathy, lumbar region | CPT/HCPCS: 72100 ==

== ENCOUNTER 2022-03-20 14:02 | Outpatient (CLI) | payer MEDICARE | END 2022-03-20 14:03 | disposition home or self-care (01) | LOC: MRI 14:02 | PROVIDERS: ATTEND Orthopaedic Surgery | DX: M54.12 Radiculopathy, cervical region (principal) | CPT/HCPCS: 72141 ==

== ENCOUNTER 2022-07-22 18:26 | Inpatient (IN) | payer MEDICARE, OTHER ==
[2022-07-22] MEDS ORDERED: Morphine 4 MG/ML VIAL ONE ×2 (19:04→21:15)
[2022-07-22] MEDS ORDERED: Ketorolac Tromethamine 30 MG/ML VIAL ONE (19:06)
[2022-07-22] MEDS ORDERED: Ketamine In 0.9 % NaCl 50 MG/5 ML SYRINGE ONE (19:18)
[2022-07-22 19:21] LABS: #Basophils 0.1 thou/uL (0.0-0.2); #Eosinphils 0.2 thou/uL (0.0-0.7); #Lymphocytes 2.6 thou/uL (1.20-3.40); #Monocytes 1.3 thou/uL (0.11-0.59); #Neutrophils 10.8 thou/uL (1.40-6.50); %Basophils 0.5 % (0.0-1.0); %Eosinophils 1.4 % (0.0-10.0); %Lymphocytes 17.4 % (21.0-51.0); %Monocytes 8.4 % (0.0-10.0); %Neutrophils 72.3 % (42.0-75.0); Hemoglobin 12.3 g/dL (12.0-16.0); Mean Corpuscular Hemoglobin 27.5 pg (27.0-31.0); Mean Corpuscular Volume 85.9 fl (78.0-98.0); Mean Platelet Volume 8.5 fL (7.4-10.4); Platelet Count 330 10x3/uL (130-400); RBC Distribution Width 17.3 % (11.5-14.5); Red Blood Cell (RBC) Count 4.46 mill/uL (4.20-5.40); White Blood Cell (WBC) Count 14.9 10x3/uL (4.8-10.8)
[2022-07-22 19:32] LABS: INR-International Normal Ratio 1.1; PTT 27.2 sec (22.9-36.1); Prothrombin Time 14.9 sec (12.0-14.7)
[2022-07-22 19:42] LABS: ALT (SGPT) 9 U/L (8-55); AST (SGOT) 13 U/L (5-34); Albumin 3.3 g/dL (3.5-5.0); Alkaline Phosphatase 123 U/L (40-110); Anion Gap 12 mmol/L (10-20); BUN (Urea Nitrogen) 23 mg/dL (9.8-20.1); Bilirubin, Total 0.3 mg/dL (0.2-1.2); Calc. Creatinine Clearance 0 mL/min (70-130); Calcium 8.5 mg/dL (7.8-10.44); Carbon Dioxide 24 mmol/L (22-29); Chloride 106 mmol/L (98-107); Estimated GFR 78; Globulin 3.1 g/dL (2.4-3.5); Glucose 196 mg/dL (70-105); Potassium 3.6 mmol/L (3.5-5.1); Protein, Total 6.4 g/dL (6.0-8.3); Sodium 138 mmol/L (136-145)
[2022-07-22] MEDS ORDERED: Morphine 4 MG/ML VIAL SLOW IVP PRN (20:31)
[2022-07-22] MEDS ORDERED: Ondansetron ODT 4 MG TAB PO PRN (20:31)
[2022-07-22] MEDS ORDERED: Ipratropium/Albuterol 3 ML NEB NEB PRN (20:31)
[2022-07-22] MEDS ORDERED: Dextrose 50% Abboject 50 ML SYRINGE SLOW IVP PRN (20:31)
[2022-07-22] MEDS ORDERED: Insulin Regular 300 UNITS/3 ML VIAL SC PRN (20:31)
[2022-07-22] MEDS ORDERED: Ondansetron PF 4 MG/2 ML Vial IVP PRN (20:31)
[2022-07-22] MEDS ORDERED: Morphine 2 MG/ML VIAL SLOW IVP PRN (20:31)
[2022-07-22] MEDS ORDERED: Dextrose 5% in Water 1,000 ML IV PRN (20:31)
[2022-07-22] MEDS ORDERED: traMADol HCl 50 MG TAB PO PRN (21:15)
[2022-07-22] MEDS ORDERED: Cyclobenzaprine 10 MG TAB PO PRN (21:15)
[2022-07-22] MEDS ORDERED: Calcium Carbonate 500 MG ChewTAB PO PRN (21:18)
[2022-07-22] MEDS: Acetaminophen 500 MG TAB PO SCH (23:34)
[2022-07-22] MEDS: traMADol HCl 50 MG TAB PO SCH (23:34)
[2022-07-22] MEDS: Famotidine 20 MG TAB PO SCH (23:35)
[2022-07-22] MEDS ORDERED: Sodium Chloride 0.9% 1,000 ML IV SCH (23:55)
[2022-07-23 00:25] VITALS: BMI 38.0
[2022-07-23] MEDS: Acetaminophen 500 MG TAB PO SCH ×4 (05:01→23:56)
[2022-07-23] MEDS: traMADol HCl 50 MG TAB PO SCH ×4 (05:02→23:57)
[2022-07-23 06:24] LABS: #Basophils 0.1 thou/uL (0.0-0.2); #Eosinphils 0.2 thou/uL (0.0-0.7); #Lymphocytes 2.8 thou/uL (1.20-3.40); #Neutrophils 9.7 thou/uL (1.40-6.50); %Basophils 0.5 % (0.0-1.0); %Eosinophils 1.2 % (0.0-10.0); %Lymphocytes 20.1 % (21.0-51.0); %Monocytes 7.5 % (0.0-10.0); %Neutrophils 70.8 % (42.0-75.0); Hemoglobin 10.8 g/dL (12.0-16.0); Mean Corpuscular HGB CONC 31.3 g/dL (32.0-36.0); Mean Corpuscular Hemoglobin 26.9 pg (27.0-31.0); Mean Corpuscular Volume 86.2 fl (78.0-98.0); Mean Platelet Volume 8.5 fL (7.4-10.4); Platelet Count 292 10x3/uL (130-400); RBC Distribution Width 17.1 % (11.5-14.5); White Blood Cell (WBC) Count 13.7 10x3/uL (4.8-10.8)
[2022-07-23 06:45] LABS: Anion Gap 13 mmol/L (10-20); BUN (Urea Nitrogen) 22 mg/dL (9.8-20.1); Calc. Creatinine Clearance 116 mL/min (70-130); Carbon Dioxide 23 mmol/L (22-29); Chloride 107 mmol/L (98-107); Estimated GFR 81; Glucose 201 mg/dL (70-105); Sodium 139 mmol/L (136-145)
[2022-07-23] MEDS ORDERED: Clindamycin/D5W 900 MG in Premix Bag 1 BAG IVPB SCH (10:00)
[2022-07-23] MEDS: Insulin Glargine 30 UNITS/0.3 ML VIAL SC SCH (10:15)
[2022-07-23] MEDS: Gabapentin 300 MG CAP PO SCH ×3 (10:15→20:30)
[2022-07-23] MEDS: Famotidine 20 MG TAB PO SCH ×2 (10:16→20:30)
[2022-07-23] MEDS ORDERED: Loperamide HCl 2 MG CAP PO PRN (10:48)
[2022-07-24] MEDS: traMADol HCl 50 MG TAB PO SCH ×3 (05:20→17:57)
[2022-07-24] MEDS: Acetaminophen 500 MG TAB PO SCH ×3 (05:21→17:56)
[2022-07-24 07:00] LABS: #Basophils 0.1 thou/uL (0.0-0.2); #Eosinphils 0.2 thou/uL (0.0-0.7); #Lymphocytes 2.6 thou/uL (1.20-3.40); #Neutrophils 8.3 thou/uL (1.40-6.50); %Basophils 0.4 % (0.0-1.0); %Eosinophils 1.9 % (0.0-10.0); %Lymphocytes 21.1 % (21.0-51.0); %Monocytes 8.4 % (0.0-10.0); %Neutrophils 68.1 % (42.0-75.0); Hemoglobin 10.9 g/dL (12.0-16.0); Mean Corpuscular Hemoglobin 28.3 pg (27.0-31.0); Mean Corpuscular Volume 85.8 fl (78.0-98.0); Mean Platelet Volume 8.2 fL (7.4-10.4); Platelet Count 287 10x3/uL (130-400); RBC Distribution Width 16.9 % (11.5-14.5); Red Blood Cell (RBC) Count 3.84 mill/uL (4.20-5.40); White Blood Cell (WBC) Count 12.2 10x3/uL (4.8-10.8)
[2022-07-24] MEDS ORDERED: Amlodipine 5 MG TAB PO SCH (09:00)
[2022-07-24] MEDS: Amlodipine 5 MG TAB PO SCH (09:30)
[2022-07-24] MEDS: Gabapentin 300 MG CAP PO SCH ×3 (09:30→21:26)
[2022-07-24] MEDS: Famotidine 20 MG TAB PO SCH ×2 (09:31→21:26)
[2022-07-24] MEDS: Insulin Glargine 30 UNITS/0.3 ML VIAL SC SCH (09:37)
[2022-07-24] MEDS ORDERED: Phenylephrine 10 MG/ML VIAL ONE (12:32)
[2022-07-24] MEDS ORDERED: Promethazine HCl 25 MG/ML VIAL ONE (12:32)
[2022-07-24] MEDS ORDERED: fentaNYL PF 100 MCG/2 ML SYRINGE ONE ×2 (12:32→14:51)
[2022-07-24] MEDS ORDERED: Clindamycin/D5W 900 mg/50 ml Premix Bag ONE (13:13)
[2022-07-24] MEDS ORDERED: Rocuronium Bromide 10 MG/ML (10ML VIAL) ONE (15:03)
[2022-07-24] MEDS ORDERED: Ondansetron PF 4 MG/2 ML Vial ONE ×2 (15:03→17:29)
[2022-07-24] MEDS ORDERED: PROPOFOL 200 MG/20 ML VIAL ONE (15:03)
[2022-07-24] MEDS ORDERED: Dexamethasone 20 MG/5 ML VIAL ONE (15:03)
[2022-07-24] MEDS ORDERED: Lidocaine 1% PF 5 ML VIAL ONE (15:03)
[2022-07-24] MEDS ORDERED: SUGAMMADEX SODIUM 200 MG/2 ML VIAL ONE (16:26)
[2022-07-24] MEDS ORDERED: fentaNYL 50 mcg/mL 1 mL Vial ONE ×3 (17:01→17:24)
[2022-07-24] MEDS: Senokot S 8.6-50 MG TAB PO SCH (21:26)
[2022-07-24] MEDS: Bupropion 150 MG XL TAB PO SCH (21:27)
[2022-07-24] MEDS: Clindamycin/D5W 900 MG in Premix Bag 1 BAG IVPB SCH (21:28)
[2022-07-24] MEDS: Amitriptyline HCl 25 MG TAB PO SCH (21:35)
[2022-07-25] MEDS: traMADol HCl 50 MG TAB PO SCH ×5 (00:59→23:56)
[2022-07-25] MEDS: Acetaminophen 500 MG TAB PO SCH ×5 (01:00→23:57)
[2022-07-25 05:49] LABS: #Lymphocytes 0.7 thou/uL (1.20-3.40); #Monocytes 0.6 thou/uL (0.11-0.59); #Neutrophils 12.4 thou/uL (1.40-6.50); %Basophils 0.1 % (0.0-1.0); %Lymphocytes 5.4 % (21.0-51.0); %Monocytes 4.2 % (0.0-10.0); %Neutrophils 90.3 % (42.0-75.0); Hemoglobin 10.8 g/dL (12.0-16.0); Mean Corpuscular HGB CONC 31.8 g/dL (32.0-36.0); Mean Corpuscular Hemoglobin 27.7 pg (27.0-31.0); Mean Corpuscular Volume 87.1 fl (78.0-98.0); Mean Platelet Volume 8.3 fL (7.4-10.4); Platelet Count 300 10x3/uL (130-400); RBC Distribution Width 16.9 % (11.5-14.5); Red Blood Cell (RBC) Count 3.91 mill/uL (4.20-5.40); White Blood Cell (WBC) Count 13.7 10x3/uL (4.8-10.8)
[2022-07-25] MEDS: Clindamycin/D5W 900 MG in Premix Bag 1 BAG IVPB SCH (06:19)
[2022-07-25] MEDS: Insulin Glargine 30 UNITS/0.3 ML VIAL SC SCH (09:03)
[2022-07-25] MEDS: Losartan 25 MG TAB PO SCH (09:03)
[2022-07-25] MEDS: Gabapentin 300 MG CAP PO SCH ×3 (09:04→21:15)
[2022-07-25] MEDS: Amitriptyline HCl 25 MG TAB PO SCH ×2 (09:04→21:14)
[2022-07-25] MEDS: Famotidine 20 MG TAB PO SCH ×2 (09:05→21:15)
[2022-07-25] MEDS: Amlodipine 5 MG TAB PO SCH (09:05)
[2022-07-25] MEDS: Polyethylene Glycol 3350 17 GM Packet PO SCH (09:06)
[2022-07-25] MEDS: Senokot S 8.6-50 MG TAB PO SCH ×2 (09:06→21:15)
[2022-07-25] MEDS: Insulin Regular 300 UNITS/3 ML VIAL SC PRN ×2 (12:06→17:51)
[2022-07-25] MEDS: Bupropion 150 MG XL TAB PO SCH (21:14)
[2022-07-26] MEDS: Acetaminophen 500 MG TAB PO SCH ×2 (05:42→12:58)
[2022-07-26] MEDS: traMADol HCl 50 MG TAB PO SCH ×2 (05:42→12:58)
[2022-07-26 06:43] LABS: #Eosinphils 0.1 thou/uL (0.0-0.7); #Lymphocytes 2.5 thou/uL (1.20-3.40); #Neutrophils 8.9 thou/uL (1.40-6.50); %Basophils 0.3 % (0.0-1.0); %Eosinophils 0.8 % (0.0-10.0); %Lymphocytes 20.1 % (21.0-51.0); %Monocytes 7.9 % (0.0-10.0); Hemoglobin 10.8 g/dL (12.0-16.0); Mean Corpuscular HGB CONC 32.3 g/dL (32.0-36.0); Mean Corpuscular Hemoglobin 28.5 pg (27.0-31.0); Mean Corpuscular Volume 88.3 fl (78.0-98.0); Mean Platelet Volume 8.1 fL (7.4-10.4); Platelet Count 326 10x3/uL (130-400); RBC Distribution Width 17.2 % (11.5-14.5); Red Blood Cell (RBC) Count 3.78 mill/uL (4.20-5.40); White Blood Cell (WBC) Count 12.6 10x3/uL (4.8-10.8)
[2022-07-26] MEDS: Famotidine 20 MG TAB PO SCH (09:27)
[2022-07-26] MEDS: Losartan 25 MG TAB PO SCH (09:27)
[2022-07-26] MEDS: Amitriptyline HCl 25 MG TAB PO SCH (09:27)
[2022-07-26] MEDS: Gabapentin 300 MG CAP PO SCH ×2 (09:27→14:24)
[2022-07-26] MEDS: Amlodipine 5 MG TAB PO SCH (09:27)
[2022-07-26] MEDS: Insulin Glargine 30 UNITS/0.3 ML VIAL SC SCH (09:28)
[2022-07-26] MEDS: Polyethylene Glycol 3350 17 GM Packet PO SCH (09:30)
[2022-07-26] MEDS: Senokot S 8.6-50 MG TAB PO SCH (09:30)
[2022-07-26 11:57] VITALS: BP 130/78; TEMP 97.9
== END 2022-07-26 17:30 | disposition home or self-care (01) | DRG 494 ==
LOC: ERS 18:26 → SURG B 20:31
PROVIDERS: ADMIT Surgery; ATTEND Surgery
PROC: 0QSG06Z Reposition Right Tibia with Intramedullary Internal Fixation Device, Open Approach (ICD-10-PCS; principal; 2022-07-24)
DX: S82.301A Unspecified fracture of lower end of right tibia, initial encounter for closed fracture (principal); I25.10 Atherosclerotic heart disease of native coronary artery without angina pectoris; I10 Essential (primary) hypertension; G43.909 Migraine, unspecified, not intractable, without status migrainosus; J45.909 Unspecified asthma, uncomplicated; F41.9 Anxiety disorder, unspecified; E03.9 Hypothyroidism, unspecified; E11.40 Type 2 diabetes mellitus with diabetic neuropathy, unspecified; E83.01 Wilson's disease; E66.9 Obesity, unspecified; L40.50 Arthropathic psoriasis, unspecified; S82.831A Other fracture of upper and lower end of right fibula, initial encounter for closed fracture; W19.XXXA Unspecified fall, initial encounter; Y92.9 Unspecified place or not applicable; Z95.5 Presence of coronary angioplasty implant and graft; Z90.49 Acquired absence of other specified parts of digestive tract; Z90.710 Acquired absence of both cervix and uterus; Z98.890 Other specified postprocedural states; Z68.38 Body mass index [BMI] 38.0-38.9, adult; Z87.891 Personal history of nicotine dependence; Z91.040 Latex allergy status; Z88.0 Allergy status to penicillin; Z88.2 Allergy status to sulfonamides; Z91.09 Other allergy status, other than to drugs and biological substances
CPT/HCPCS: 36415; 36416; 71045; 80048; 80053; 84484; 85025; 85610; 85730; 93005; C1713; G0390; J1100; J1650; J1815; J1885; J2270; J2370; J2405; J2550; J2704; J3010; J3490; J7050

== ENCOUNTER 2023-01-17 12:36 | Outpatient (CLI) | payer MEDICARE | END 2023-01-17 12:37 | disposition home or self-care (01) | LOC: BICMAMMO 12:36 | PROVIDERS: ATTEND Internal Medicine | DX: Z12.31 Encounter for screening mammogram for malignant neoplasm of breast (principal); Z98.890 Other specified postprocedural states; Z87.891 Personal history of nicotine dependence | CPT/HCPCS: 71271; 77063; 77067 ==

== ENCOUNTER 2023-02-14 11:26 | Outpatient (CLI) | payer MEDICARE | END 2023-02-14 11:27 | disposition home or self-care (01) | LOC: BICCT 11:26 | PROVIDERS: ATTEND Internal Medicine | DX: R10.9 Unspecified abdominal pain (principal); N20.0 Calculus of kidney | CPT/HCPCS: 74177 ==

== ENCOUNTER 2023-03-05 13:18 | Outpatient (CLI) | payer MEDICARE | END 2023-03-05 13:19 | disposition home or self-care (01) | PROVIDERS: ATTEND Internal Medicine | DX: R26.81 Unsteadiness on feet (principal) ==

== ENCOUNTER 2023-10-19 17:41 | Emergency (ER) | payer MEDICARE ==
[2023-10-19 18:20] LABS: #Basophils 0.08 10x3/uL (0.0-0.2); %Basophils 0.7 % (0.0-1.0); %Eosinophils 2.5 % (0.0-10.0); %Lymphocytes 28.4 % (21.0-51.0); %Monocytes 10.2 % (0.0-10.0); %Neutrophils 57.5 % (42.0-75.0); Hematocrit 39.6 % (36.0-47.0); Hemoglobin 12.3 g/dL (12.0-16.0); Mean Corpuscular HGB CONC 31.1 g/dL (32.0-36.0); Mean Corpuscular Hemoglobin 28.1 pg (27.0-31.0); Mean Corpuscular Volume 90.4 fL (78.0-98.0); Mean Platelet Volume 10.2 fL (7.4-10.4); Platelet Count 312 10x3/uL (130-400); RBC Distribution Width 15.6 % (11.5-14.5); Red Blood Cell (RBC) Count 4.38 mill/uL (4.20-5.40)
[2023-10-19 18:38] LABS: ALT (SGPT) 15 U/L (8-55); AST (SGOT) 16 U/L (5-34); Albumin 3.1 g/dL (3.5-5.0); Alkaline Phosphatase 141 U/L (40-110); Anion Gap 16 mmol/L (10-20); BUN (Urea Nitrogen) 27 mg/dL (9.8-20.1); Bilirubin, Total 0.4 mg/dL (0.2-1.2); Calc. Creatinine Clearance 0 mL/min (70-130); Calcium 9.1 mg/dL (7.8-10.44); Carbon Dioxide 22 mmol/L (22-29); Chloride 112 mmol/L (98-107); Estimated GFR 68; Globulin 3.5 g/dL (2.4-3.5); Glucose 105 mg/dL (70-105); Magnesium 2.2 mg/dL (1.6-2.6); Potassium 3.9 mmol/L (3.5-5.1); Protein, Total 6.6 g/dL (6.0-8.3); Sodium 146 mmol/L (136-145)
== END 2023-10-19 19:55 | disposition home or self-care (01) ==
LOC: ERS 17:41
DX: R20.2 Paresthesia of skin (principal); E86.0 Dehydration; R29.700 NIHSS score 0; I25.10 Atherosclerotic heart disease of native coronary artery without angina pectoris; I10 Essential (primary) hypertension; E11.40 Type 2 diabetes mellitus with diabetic neuropathy, unspecified; M79.7 Fibromyalgia; Z95.5 Presence of coronary angioplasty implant and graft; Z87.891 Personal history of nicotine dependence; Z79.4 Long term (current) use of insulin; Z79.82 Long term (current) use of aspirin; Z79.899 Other long term (current) drug therapy
CPT/HCPCS: 36416; 70450; 80053; 83735; 85025; 93005

== ENCOUNTER 2024-02-10 12:57 | Outpatient (CLI) | payer MEDICARE | END 2024-02-10 12:58 | disposition home or self-care (01) | LOC: BICMAMMO 12:57 | PROVIDERS: ATTEND Internal Medicine | DX: Z12.31 Encounter for screening mammogram for malignant neoplasm of breast (principal); Z78.0 Asymptomatic menopausal state; Z12.2 Encounter for screening for malignant neoplasm of respiratory organs; N64.89 Other specified disorders of breast; M85.89 Other specified disorders of bone density and structure, multiple sites; Z87.891 Personal history of nicotine dependence; Z98.890 Other specified postprocedural states | CPT/HCPCS: 71271; 77063; 77067; 77080 ==

== ENCOUNTER 2024-02-17 14:45 | Outpatient (CLI) | payer MEDICARE | END 2024-02-17 14:46 | disposition home or self-care (01) | LOC: BICMAMMO 14:45 | PROVIDERS: ATTEND Internal Medicine | DX: N64.89 Other specified disorders of breast (principal) | CPT/HCPCS: 76642; 77065; G0279 ==

== ENCOUNTER 2024-12-07 12:24 | Outpatient (CLI) | payer MEDICARE ==
[~2024-12-07 12:24] MED LIST changes: -ISOVUE-370 76%-LOCM 1 ML ONE; +Iopamidol 370 76% 100 ML VIAL ONE
== END 2024-12-07 12:25 | disposition home or self-care (01) ==
LOC: CT 12:24
PROVIDERS: ATTEND Internal Medicine
DX: R10.32 Left lower quadrant pain (principal); M25.552 Pain in left hip; R91.8 Other nonspecific abnormal finding of lung field
CPT/HCPCS: 74177; Q9967

== ENCOUNTER 2024-12-10 10:23 | Outpatient (CLI) | payer MEDICARE | END 2024-12-10 10:24 | disposition home or self-care (01) | LOC: BICCT 10:23 | PROVIDERS: ATTEND Internal Medicine | DX: R91.8 Other nonspecific abnormal finding of lung field (principal) | CPT/HCPCS: 71250 ==

== ENCOUNTER 2025-02-10 11:17 | Outpatient (CLI) | payer MEDICARE | END 2025-02-10 11:18 | disposition home or self-care (01) | LOC: BICMAMMO 11:17 | PROVIDERS: ATTEND Internal Medicine | DX: Z12.31 Encounter for screening mammogram for malignant neoplasm of breast (principal); Z98.890 Other specified postprocedural states | CPT/HCPCS: 77063; 77067 ==